=== PATIENT | female | born 1950 | race Caucasian/White ===

== ENCOUNTER → 2016-11-03 | Outpatient (CLI) | payer MEDICARE, BC ==
[2016-11-03 12:58] LABS: CHOLESTEROL 217.15 mg/dL (0-200); Direct HDL 51 mg/dL (>40); TRIGLYCERIDES 103 mg/dL (<150)
[2016-11-03 13:08] LABS: DIRECT LDL 129 mg/dL (<100)
== END ==
LOC: OD 11:26
PROVIDERS: ATTEND Internal Medicine
DX: E78.5 Hyperlipidemia, unspecified (principal)
CPT/HCPCS: 36415; 80061

== ENCOUNTER 2017-04-27 11:23 | Emergency (ER) | payer MEDICARE, BC ==
--- NOTE | 2017-04-27 11:54 | ER Document Report ---
ED Medical Screen (RME) - General Chief Complaint: Foreign Body Stated Complaint: FOREIGN BODY IN THROAT Time Seen by Provider: 04/27/17 11:44 Notes: 66-year-old female patient on Plavix reports eating fish Tuesday and feels like a bone got stuck in her right throat. The sensation continues now 2 days later. I have greeted and performed a rapid initial assessment of this patient. A comprehensive ED assessment and evaluation of the patient, analysis of test results and completion of the medical decision making process will be conducted by additional ED providers. TRAVEL OUTSIDE OF THE [place] IN LAST 30 DAYS: No - Related Data Allergies/Adverse Reactions: aspirin Allergy (Verified 02/02/16 16:53) diphenhydramine HCl [From Benadryl] Allergy (Verified 02/02/16 16:53) ibuprofen [From Motrin IB] Allergy (Verified 02/02/16 16:53) Home Medications: Current Home Medications Multivitamin/Iron/Folic Acid [Centrum Adults Tablet] 1 each PO DAILY 04/27/17 [ History] [place]-3 Fatty Acids/Fish Oil [Fish Oil 300 Mg Softgel] 1 each PO BID 04/27/17 [ History] Ranitidine HCl [Zantac 150 mg Tablet] 150 mg PO BID 04/27/17 [History] Past Medical History Renal/ Medical History: Denies: Hx Peritoneal Dialysis
--- NOTE | 2017-04-27 12:39 | RADIOLOGY REPORT (SQ) ---
EXAM DESCRIPTION: CT SOFT TISSUE NECK WITHOUT COMPLETED DATE/TIME: 04/27/2017 12:06 pm REASON FOR STUDY: ingested fishbone COMPARISON: None. TECHNIQUE: Noncontrast scanning from skull base through lung apices with review of bone, soft tissue and lung windows. Reconstructed coronal and sagittal MPR images reviewed. All images stored on PAC S. All CT scanners at this facility use dose modulation, iterative reconstruction, and/or weight based d osing when appropriate to reduce radiation dose to as low as reasonably achievable (ALARA). [facility]: Dose Right [facility]: CareDose [facility]: Dose Right [facility]: Teradose 4D [facility]: Smart [employer] RADIATION DOSE: Up-to-date CT equipment and radiation dose reduction techniques were employed. CTDIv ol: 14.3 mGy. DLP: 473 mGy-cm. mGy. LIMITATIONS: None. FINDINGS: The patient gives a history of swallowing a fish bone 2 days ago, with persistent pain in the right neck/laryngeal region. Non contrasted CT was performed to search for a small radiopaque fish bone. On axial images 50 throu gh 52, there is a faint radiodensity in the tongue base lymphoid tissue which could be a fish bone fr agment. Slightly more cephalad on axial images 41 through 43, two tiny less than 2 mm radiodensities are seen in the right pharyngeal tonsil, which could be calcifications in tonsillar crypts or tiny f silvia bone fragments. More coarse dense calcifications are seen over the left pharyngeal tonsil, of doubtful clinical signi ficance. This report was discussed with Dr. Ledezma in the emergency room. SKULL BASE: Intact. MAJOR SALIVARY GLANDS: No solid or cystic masses. No inflammatory changes. LYMPHADENOPATHY: No adenopathy. MUCOSAL MASSES OR ASYMMETRY: No mucosal masses or asymmetry. LARYNX/CORDS: No abnormal findings. LUNG APICES: Clear. BONES: Diffuse degenerative disc changes throughout the cervical spine with multilevel foraminal narr owing. THYROID: Normal size. No masses. PARANASAL SINUSES: Clear. OTHER: No other significant finding. IMPRESSION: There is a tiny radiodensity in the right tongue base lymphoid tissue which could repres ent a fish bone fragment. Smaller radiodensities in the right pharyngeal tonsil could either be calc ification in tonsillar crypts or tiny fish bone fragments. TECHNICAL DOCUMENTATION: JOB ID: [id number] Quality ID # [id number]: Final reports with documentation of one or more dose reduction techniques (e.g., Au tomated exposure control, adjustment of the mA and/or kV according to patient size, use of iterative reconstruction technique) 2010 [employer]- All Rights Reserved
[2017-04-27 12:41] VITALS: BP 146/62
--- NOTE | 2017-04-27 13:32 | ER Document Report ---
ED Foreign Body - General Chief Complaint: Foreign Body Stated Complaint: FOREIGN BODY IN THROAT Time Seen by Provider: 04/27/17 11:44 Mode of Arrival: Ambulatory Information source: Patient Notes: Patient is a 66-year-old female who presents to the ER today for possible fishbone stuck in her throat. Patient was eating fish on Tuesday and thinks that that is what happened. She states that she is tried eating bread and tried drinking plenty of fluids to try to get the bone to go down but it feels like it is stuck in the right side of her throat. She denies any trouble breathing, trouble swallowing. TRAVEL OUTSIDE OF THE [place] IN LAST 30 DAYS: No - Related Data Allergies/Adverse Reactions: aspirin Allergy (Verified 02/02/16 16:53) diphenhydramine HCl [From Benadryl] Allergy (Verified 02/02/16 16:53) ibuprofen [From Motrin IB] Allergy (Verified 02/02/16 16:53) Home Medications: Current Home Medications Multivitamin/Iron/Folic Acid [Centrum Adults Tablet] 1 each PO DAILY 04/27/17 [ History] [place]-3 Fatty Acids/Fish Oil [Fish Oil 300 Mg Softgel] 1 each PO BID 04/27/17 [ History] Ranitidine HCl [Zantac 150 mg Tablet] 150 mg PO BID 04/27/17 [History] Past Medical History - General Information source: Patient - Social History Smoking Status: Never Smoker Chew tobacco use (# tins/day): No Frequency of alcohol use: None Drug Abuse: None Family History: Reviewed & Not Pertinent Patient has suicidal ideation: No Patient has homicidal ideation: No - Past Medical History Cardiac Medical History: Reports: Hx Hypertension Renal/ Medical History: Denies: Hx Peritoneal Dialysis GI Medical History: Reports: Hx Ulcer Musculoskeltal Medical History: Reports Hx Arthritis Past Surgical History: Reports: Hx Cholecystectomy, Hx Hysterectomy - Immunizations Hx Pneumococcal Vaccination: 09/19/14 Review of Systems - Review of Systems Constitutional: No symptoms reported EENT: See HPI Cardiovascular: No symptoms reported Respiratory: No symptoms reported Gastrointestinal: No symptoms reported Genitourinary: No symptoms reported Female Genitourinary: No symptoms reported Musculoskeletal: No symptoms reported Skin: No symptoms reported Hematologic/Lymphatic: No symptoms reported Neurological/Psychological: No symptoms reported Physical Exam - Vital signs Vitals: Temp Pulse Resp BP Pulse Ox 97.9 F 65 16 146/62 H 98 04/27/17 11:27 04/27/17 11:27 04/27/17 11:27 04/27/17 11:27 04/27/17 11:27 - Notes Notes: PHYSICAL EXAMINATION: GENERAL: Well-appearing and in no acute distress. HEAD: Atraumatic, normocephalic. EYES: Pupils equal round and reactive to light, extraocular movements intact, sclera anicteric, conjunctiva are normal. ENT: ear canals without erythema or foreign body, TMs pearly bond with good bony landmarks, nares patent, oropharynx clear without exudates. Moist mucous membranes. Airway patent NECK: Normal range of motion, supple without lymphadenopathy LUNGS: CTAB and equal. No wheezes rales or rhonchi. HEART: Regular rate and rhythm without murmurs EXTREMITIES: Normal range of motion, no pitting edema. No cyanosis. NEUROLOGICAL: Cranial nerves grossly intact. Normal sensory/motor exams. PSYCH: Normal mood, normal affect. 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 I made the appointment myself. Patient is on her way there now. - Vital Signs Vital signs: Temp Pulse Resp BP Pulse Ox 97.9 F 65 16 146/62 H 98 04/27/17 11:27 04/27/17 11:27 04/27/17 11:27 04/27/17 11:27 04/27/17 11:27 Discharge - Discharge Clinical Impression: Foreign body in throat Qualifiers: Encounter type: initial encounter Qualified Code(s): T17.208A - Unspecified foreign body in pharynx causing other injury, initial encounter Condition: Stable Disposition: HOME, SELF-CARE Additional Instructions: GO STRAIGHT TO [facility], [address] [place] [address] THEY HAVE AN APPT FOR YOU AT 2PM. Referrals: JUAN LUIS CHENG MD [Primary Care Provider] - Follow up as needed
== END 2017-04-27 13:45 | disposition home or self-care (01) ==
LOC: ER 11:23
DX: T17.208A Unspecified foreign body in pharynx causing other injury, initial encounter (principal); X58.XXXA Exposure to other specified factors, initial encounter; I10 Essential (primary) hypertension; Z88.6 Allergy status to analgesic agent; Z88.8 Allergy status to other drugs, medicaments and biological substances
CPT/HCPCS: 70490; 99283

== ENCOUNTER → 2017-05-06 | Outpatient (CLI) | payer MEDICARE, BC ==
--- NOTE | 2017-05-06 18:28 | RADIOLOGY REPORT (SQ) ---
EXAM DESCRIPTION: BARIUM SWALLOW PHARYNX ONLY COMPLETED DATE/TIME: 05/06/2017 9:30 am REASON FOR STUDY: GERD (K21.9) R13.10 DYSPHAGIA, UNSPECIFIED K21.9 GASTRO-ESOPHAGEAL REFLUX DISEAS E WITHOUT ESOPHAGITIS COMPARISON: CT soft tissue neck without contrast 04/27/2017 TECHNIQUE: Under fluoroscopic guidance, patient ingested effervescent granules followed by thick and thin barium. Fluoroscopic spot images and routine radiographic images acquired and stored on PACS. 12 MM BARIUM TABLET GIVEN: Yes No significant delay in passage. LIMITATIONS: None. FLUOROSCOPY TIME: FLUORO TIME: 1.4 minutes 11 series of digital images saved to PACS. FINDINGS: NEUROMUSCULAR COORDINATION OF SWALLOW: Normal. No aspiration. ESOPHAGEAL MOTILITY: Tertiary contractions of the esophagus are present. ESOPHAGEAL MUCOSA: Normal mucosa without masses or ulceration. GASTRO-ESOPHAGEAL JUNCTION: Small hiatal hernia. Unprovoked gastroesophageal reflux to the cervical esophagus. NON-GI TRACT STRUCTURES: Diffuse degenerative changes cervical spine OTHER: No other significant finding. IMPRESSION: Small hiatal hernia with gastroesophageal reflux to the cervical esophagus COMMENT: Quality ID 145: Final reports for procedures using fluoroscopy that document radiation exp osure indices, or exposure time and number of fluorographic images (if radiation exposure indices are not available) TECHNICAL DOCUMENTATION: JOB ID: [id number] [employer]- All Rights Reserved
== END ==
LOC: RAD 08:50
PROVIDERS: ATTEND Otolaryngology
DX: K21.9 Gastro-esophageal reflux disease without esophagitis (principal); K44.9 Diaphragmatic hernia without obstruction or gangrene
CPT/HCPCS: 74210

== ENCOUNTER 2017-09-08 15:20 | Inpatient (IN) | payer MEDICARE, BC ==
--- NOTE | 2017-09-08 16:04 | RADIOLOGY REPORT (SQ) ---
EXAM DESCRIPTION: HIP LEFT AP/LATERAL COMPLETED DATE/TIME: 09/08/2017 3:56 pm REASON FOR STUDY: l hip rotation COMPARISON: None. NUMBER OF VIEWS: Two views. TECHNIQUE: AP pelvis and additional frog-leg view of the left hip. LIMITATIONS: None. FINDINGS: MINERALIZATION: Normal. LEFT HIP: There is a comminuted low intertrochanteric/sub intertrochanteric fracture of the hip with varus angulation. RIGHT HIP: No fracture or dislocation. No worrisome bone lesions. PUBIS AND ISCHIUM: No fracture. PELVIS: No fracture. SACRUM: No fracture or dislocation. No worrisome bone lesions. LOWER LUMBAR SPINE: No fracture or dislocation. No worrisome bone lesions. No significant disc disea se. SOFT TISSUES: No findings. OTHER: No other significant finding. IMPRESSION: Left hip fracture. TECHNICAL DOCUMENTATION: JOB ID: [id number] [employer]- All Rights Reserved
--- NOTE | 2017-09-08 16:05 | RADIOLOGY REPORT (SQ) ---
EXAM DESCRIPTION: CHEST SINGLE VIEW COMPLETED DATE/TIME: 09/08/2017 3:56 pm REASON FOR STUDY: PRE OP COMPARISON: 02/02/2016 EXAM PARAMETERS: NUMBER OF VIEWS: One view. TECHNIQUE: Single frontal radiographic view of the chest acquired. RADIATION DOSE: NA LIMITATIONS: None. FINDINGS: LUNGS AND PLEURA: No opacities, masses or pneumothorax. No pleural effusion. MEDIASTINUM AND HILAR STRUCTURES: No masses. Contour normal. HEART AND VASCULAR STRUCTURES: Heart normal in size. Normal vasculature. BONES: No acute findings. HARDWARE: None in the chest. OTHER: No other significant finding. IMPRESSION: NO ACUTE RADIOGRAPHIC FINDING IN THE CHEST. TECHNICAL DOCUMENTATION: JOB ID: [id number] [employer]- All Rights Reserved
[2017-09-08] MEDS ORDERED: HYDROMORPHONE HCL INJ/PF 2 MG/ML AMPULE IV PRN ×3 (16:43→23:37)
[2017-09-08] MEDS ORDERED: ONDANSETRON HCL INJ/PF 4 MG/2 ML SDV IV PRN ×2 (16:44→19:30)
[2017-09-08 17:06] LABS: HEMATOCRIT 38.9 % (36.0-47.0); HEMOGLOBIN 13.1 g/dL (12.0-15.5); MEAN CORPUSCULAR HEMOGLOBIN 29.8 pg (27.0-33.4); MEAN CORPUSCULAR HGB CONC 33.7 g/dL (32.0-36.0); MEAN CORPUSCULAR VOLUME 89 fl (80-97); PLATELET COUNT 273 10^3/uL (150-450); RED BLOOD COUNT 4.39 10^6/uL (3.72-5.28); RED CELL DISTRIBUTION WIDTH 13.1 % (11.5-14.0); WHITE BLOOD COUNT 19.8 10^3/uL (4.0-10.5)
[2017-09-08 17:22] LABS: INTERNATIONAL RATION (INR) 0.97; PROTHROMBIN TIME 13.6 SEC (11.4-15.4)
[2017-09-08 17:23] LABS: ALANINE AMINOTRANSFERASE 25 U/L (9-52); ALBUMIN 4.2 g/dL (3.5-5.0); ALKALINE PHOSPHATASE 132 U/L (38-126); ANION GAP 10 (5-19); ASPARTATE AMINO TRANSFERASE 28 U/L (14-36); BILIRUBIN,DIRECT 0.3 mg/dL (0.0-0.4); BILIRUBIN,TOTAL 0.6 mg/dL (0.2-1.3); BLOOD UREA NITROGEN 22 mg/dL (7-20); CALCIUM 9.9 mg/dL (8.4-10.2); CARBON DIOXIDE 28 mmol/L (22-30); CHLORIDE 104 mmol/L (98-107); GLUCOSE 201 mg/dL (75-110); PARTIAL THROMBOPLASTIN TIME 27.1 SEC (23.5-35.8); POTASSIUM 4.7 mmol/L (3.6-5.0); SODIUM 141.5 mmol/L (137-145)
[2017-09-08 17:44] LABS: ABSOLUTE LYMPHOCYTES# (MANUAL) 0.6 10^3/uL (0.5-4.7); ABSOLUTE MONOCYTES # (MANUAL) 0.4 10^3/uL (0.1-1.4); ABSOLUTE NEUTROPHILS# (MANUAL) 18.8 10^3/uL (1.7-8.2); BAND NEUTROPHILS % (MANUAL) 4 % (3-5); BASOPHILS % (MANUAL) 0 % (0-2); EOSINOPHILS % (MANUAL) 0 % (0-6); LYMPHOCYTES % (MANUAL) 3 % (13-45); MONOCYTES % (MANUAL) 2 % (3-13); SEGMENTED NEUTROPHILS % (MAN) 91 % (42-78); TOTAL CELLS COUNTED 100
[2017-09-08 17:47] LABS: PLATELET COMMENT ADEQUATE; RBC MORPHOLOGY COMMENT NORMO-CYTIC/CHROMIC
--- NOTE | 2017-09-08 17:53 | ER Document Report ---
ED General - General Chief Complaint: Fall Injury Stated Complaint: FALL/HIP PAIN Time Seen by Provider: 09/08/17 15:33 TRAVEL OUTSIDE OF THE [place] IN LAST 30 DAYS: No - HPI Patient complains to provider of: Left hip pain Notes: There is on a stepladder home proximally for second step when she fell off landing on left side injuring her left hip. Patient denies loss consciousness denies any other injuries. Patient states has a history of diabetes hypertension. PCP is Blaine Cervantes MD. Patient is in obvious pain with obvious hip deformity upon my evaluation. - Related Data Allergies/Adverse Reactions: aspirin Allergy (Verified 02/02/16 16:53) diphenhydramine HCl [From Benadryl] Allergy (Verified 02/02/16 16:53) ibuprofen [From Motrin IB] Allergy (Verified 02/02/16 16:53) Past Medical History - Social History Smoking Status: Never Smoker Frequency of alcohol use: None Drug Abuse: None Family History: Reviewed & Not Pertinent Patient has suicidal ideation: No Patient has homicidal ideation: No - Past Medical History Cardiac Medical History: Reports: Hx Hypertension Renal/ Medical History: Denies: Hx Peritoneal Dialysis GI Medical History: Reports: Hx Ulcer Musculoskeltal Medical History: Reports Hx Arthritis Past Surgical History: Reports: Hx Cholecystectomy, Hx Hysterectomy - Immunizations Hx Pneumococcal Vaccination: 09/19/14 Review of Systems - Review of Systems Constitutional: No symptoms reported EENT: No symptoms reported Cardiovascular: No symptoms reported Respiratory: No symptoms reported Gastrointestinal: No symptoms reported Genitourinary: No symptoms reported Female Genitourinary: No symptoms reported Musculoskeletal: Other - Hip pain Skin: No symptoms reported Hematologic/Lymphatic: No symptoms reported Neurological/Psychological: No symptoms reported -: Yes All other systems reviewed and negative Physical Exam - Vital signs Vitals: Resp Pulse Ox 18 97 09/08/17 16:02 09/08/17 16:02 Interpretation: Normal - General General appearance: Appears well, Alert - HEENT Head: Normocephalic, Atraumatic Eyes: Normal Pupils: PERRL - Respiratory Respiratory status: No respiratory distress Chest status: Nontender Breath sounds: Normal Chest palpation: Normal - Cardiovascular Rhythm: Regular Heart sounds: Normal auscultation Murmur: No - Abdominal Inspection: Normal Distension: No distension Bowel sounds: Normal Tenderness: Nontender Organomegaly: No organomegaly - Back Back: Normal, Nontender - Extremities General upper extremity: Normal inspection, Nontender, Normal color, Normal ROM , Normal temperature General lower extremity: Other - Obvious deformity and shortening of the left hip.No signs of open fracturePulses intact distalNo other signs of injury right side unaffected. - Neurological Neuro grossly intact: Yes Cognition: Normal Orientation: AAOx4 Jie Coma Scale Eye Opening: Spontaneous Jie Coma Scale Verbal: Oriented [place] Coma Scale Motor: Obeys Commands [place] Coma Scale Total: 15 Speech: Normal Motor strength normal: LUE, RUE, LLE, RLE Sensory: Normal - Psychological Associated symptoms: Normal affect, Normal mood - Skin Skin Temperature: Warm Skin Moisture: Dry Skin Color: Normal Course - Re-evaluation Re-evalutation: 09/08/17 18:24 No other signs of any other injuries discuss with orthopedic Dr. Saavedra agrees with medical admission to the medical issues.Patient n.p.o. after midnight.Discussed with Blaine Cervantes MD and recall Blaine Cervantes MD after laboratory results. Leukocytosis without any signs of other infection more likely leukocytosis due to trauma. Patient will be admitted to the medical floor. - Vital Signs Vital signs: Temp Pulse Resp BP Pulse Ox 25 H 160/66 H 98 09/08/17 17:02 09/08/17 17:02 09/08/17 17:02 - Laboratory Result Diagrams: 09/08/17 16:45 09/08/17 16:45 Laboratory results interpreted by me: 09/08/17 09/08/17 16:45 16:45 WBC 19.8 H Seg Neuts % (Manual) 91 H Lymphocytes % (Manual) 3 L Monocytes % (Manual) 2 L Abs Neuts (Manual) 18.8 H BUN 22 H Glucose 201 H Alkaline Phosphatase 132 H Discharge - Discharge Clinical Impression: Fracture of left hip Qualifiers: Encounter type: sequela Fracture type: closed Qualified Code(s): S72.002S - Fracture of unspecified part of neck of left femur, sequela Diabetes mellitus, type 2 Qualifiers: Diabetes mellitus complication status: without complication Hypertensive disorder Qualifiers: Hypertension type: essential hypertension Qualified Code(s): I10 - Essential ( primary) hypertension Condition: Good Disposition: ADMITTED INPATIENT Admitting Provider: Helen Unit Admitted: Medical Floor
--- NOTE | 2017-09-08 17:59 | EKG REPORT ---
SEVERITY:- NORMAL ECG - SINUS RHYTHM : Confirmed by: Villa Yu MD 08-Sep-2017 17:58:29
[2017-09-08] MEDS ORDERED: NORMAL SALINE 1000 ML 1,000 ML IV ONE (18:13)
[2017-09-08] MEDS ORDERED: FENTANYL CITRATE INJ/PF 100 MCG/2 ML AMPUL IV ONE (18:16)
[2017-09-08 18:36] LABS: APPEARANCE,URINE SLIGHTLY-CLOUDY; BILIRUBIN,URINE NEGATIVE (NEGATIVE); COLOR,URINE YELLOW; GLUCOSE, URINE NEGATIVE (NEGATIVE); KETONES,URINE 80 mg/dL (NEGATIVE); LEUKOCYTE ESTERASE,URINE NEGATIVE (NEGATIVE); NITRITE,URINE NEGATIVE (NEGATIVE); PROTEIN,URINE NEGATIVE (NEGATIVE); URINE SPECIFIC GRAVITY 1.021; UROBILINOGEN,URINE NEGATIVE mg/dL (<2.0)
[2017-09-08] MEDS ORDERED: ONDANSETRON 4 MG TAB.RAPDIS PO PRN (18:37)
[2017-09-08] MEDS ORDERED: NORMAL SALINE 1000 ML 1,000 ML IV PRN (18:37)
[2017-09-08] MEDS ORDERED: DEXTROSE 50%-WATER 25 GM/50 ML DISP.SYRIN IV PRN ×2 (18:46)
[2017-09-08] MEDS ORDERED: INSULIN LISPRO 100 UNIT/ML 3 ML VIAL SUBCUT PRN (18:46)
[2017-09-08] MEDS ORDERED: GLUCAGON,HUMAN RECOMB 1 MG INJ IM PRN (18:46)
[2017-09-08] MEDS ORDERED: DEXTROSE 40% GEL 15 GM TUBE PO PRN ×2 (18:46)
--- NOTE | 2017-09-08 18:55 | PDOC H&P ---
History of Present Illness Admission Date/PCP: 09/08/17 18:18 JUAN LUIS CHENG, Patient complains of: fall with left hip pain History of Present Illness: SARAH MURILLO is a 66 year old female Past Medical History Cardiac Medical History: Reports: Hypertension Endocrine Medical History: Reports: Diabetes Mellitus Type 2 GI Medical History: Reports: Gastroesophageal Reflux Disease Musculoskeltal Medical History: Reports: Arthritis Past Surgical History Past Surgical History: Reports: Cholecystectomy, Hysterectomy Social History Smoking Status: Never Smoker Frequency of Alcohol Use: None Hx Recreational Drug Use: No Drugs: None Hx Prescription Drug Abuse: No Family History Family History: CAD, DM Parental Family History Reviewed: Yes Children Family History Reviewed: Yes Sibling(s) Family History Reviewed.: Yes Medication/Allergy Allergies/Adverse Reactions: aspirin Allergy (Verified 02/02/16 16:53) diphenhydramine HCl [From Benadryl] Allergy (Verified 02/02/16 16:53) ibuprofen [From Motrin IB] Allergy (Verified 02/02/16 16:53) Review of Systems All systems: as per H Physical Exam Vital Signs: Temp Pulse Resp BP Pulse Ox 25 H 160/66 H 98 09/08/17 17:02 09/08/17 17:02 09/08/17 17:02 General appearance: PRESENT: mild distress Head exam: PRESENT: atraumatic Eye exam: PRESENT: conjunctiva pink Neck exam: ABSENT: carotid bruit, JVD Respiratory exam: PRESENT: clear to auscultation shawn Cardiovascular exam: PRESENT: RRR, +S1, +S2 Pulses: PRESENT: +1 pedal pulses bilateral GI/Abdominal exam: PRESENT: normal bowel sounds, soft Extremities exam: PRESENT: tenderness Additional comments: left hip Musculoskeletal exam: ABSENT: ambulatory Neurological exam: PRESENT: awake Results Impressions: Chest X-Ray 09/08/17 00:00 IMPRESSION: NO ACUTE RADIOGRAPHIC FINDING IN THE CHEST. Hip X-Ray 09/08/17 00:00 IMPRESSION: Left hip fracture. Assessment & Plan - Diagnosis (1) Diabetes mellitus, type 2 Qualifiers: Diabetes mellitus complication status: without complication Is this a current diagnosis for this admission?: Yes Plan: insulin protocol (2) Fracture of left hip Qualifiers: Encounter type: sequela Fracture type: closed Qualified Code(s): S72.002S - Fracture of unspecified part of neck of left femur, sequela Is this a current diagnosis for this admission?: Yes Plan: ortho consult (3) Hypertensive disorder Qualifiers: Hypertension type: essential hypertension Qualified Code(s): I10 - Essential (primary) hypertension Is this a current diagnosis for this admission?: Yes Plan: continue current meds
[2017-09-08] MEDS ORDERED: ENOXAPARIN SODIUM INJ 40 MG/0.4 ML DISP.SYRIN SUBCUT ONE (20:30)
[2017-09-08] MEDS ORDERED: INFLUENZA ADLT QUAD (36MOS+) 2017-18 VAC 0.5 ML SYR IM PRN (22:56)
[2017-09-08] MEDS ORDERED: ACETAMINOPHEN 325 MG TABLET PO PRN (23:09)
[2017-09-08] MEDS ORDERED: KETOROLAC TROMETHAMINE INJ/PF 30 MG/1 ML SDV IV PRN (23:09)
[2017-09-08] MEDS ORDERED: HYDRALAZINE HCL INJ/PF 20 MG/1 ML SDV IV PRN (23:09)
[2017-09-08] MEDS ORDERED: AMLODIPINE BESYLATE 2.5 MG TABLET PO ONE (23:59)
[2017-09-08] MEDS ORDERED: METOPROLOL SUCCINATE 25 MG TAB.SR.24H PO ONE (23:59)
[2017-09-09] MEDS ORDERED: FENTANYL CITRATE INJ/PF 100 MCG/2 ML AMPUL IV ONE (02:45)
[2017-09-09] MEDS ORDERED: HYDROMORPHONE HCL INJ/PF 2 MG/ML AMPULE IV PRN (03:30)
[2017-09-09 05:07] LABS: ABSOLUTE LYMPHOCYTES (AUTO) 0.9 10^3/uL (0.5-4.7); ABSOLUTE MONOCYTES (AUTO) 0.5 10^3/uL (0.1-1.4); ABSOLUTE NEUT (AUTO) 8.3 10^3/uL (1.7-8.2); BASOPHILS % (AUTO) 0.1 % (0-2); HEMATOCRIT 34.1 % (36.0-47.0); HEMOGLOBIN 11.5 g/dL (12.0-15.5); MEAN CORPUSCULAR HEMOGLOBIN 29.8 pg (27.0-33.4); MEAN CORPUSCULAR HGB CONC 33.7 g/dL (32.0-36.0); MEAN CORPUSCULAR VOLUME 89 fl (80-97); MONOCYTES % (AUTO) 5.1 % (3-13); PLATELET COUNT 254 10^3/uL (150-450); RED BLOOD COUNT 3.85 10^6/uL (3.72-5.28); RED CELL DISTRIBUTION WIDTH 13.1 % (11.5-14.0); SEGMENTED NEUTROPHILS % (AUTO) 85.8 % (42-78); TOTAL CELLS COUNTED % (AUTO) 100 %; WHITE BLOOD COUNT 9.7 10^3/uL (4.0-10.5)
[2017-09-09 05:26] LABS: ANION GAP 10 (5-19); BLOOD UREA NITROGEN 20 mg/dL (7-20); CALCIUM 9.3 mg/dL (8.4-10.2); CARBON DIOXIDE 26 mmol/L (22-30); CHLORIDE 104 mmol/L (98-107); GLUCOSE 179 mg/dL (75-110); SODIUM 139.8 mmol/L (137-145)
[2017-09-09] MEDS ORDERED: LANSOPRAZOLE 30 MG TAB.RAP.DR PO SCH (06:00)
[2017-09-09] MEDS ORDERED: DEXTROSE 50%-WATER 25 GM/50 ML DISP.SYRIN IV PRN ×2 (07:39)
[2017-09-09] MEDS ORDERED: GLUCAGON,HUMAN RECOMB 1 MG INJ SUBCUT PRN (07:39)
[2017-09-09] MEDS ORDERED: DEXTROSE 40% GEL 15 GM TUBE PO PRN ×2 (07:39)
--- NOTE | 2017-09-09 07:48 | PDOC CONSULTATION ---
History of Present Illness Admission Date/PCP: 09/08/17 18:18 JUAN LUIS CHENG, Patient complains of: Left hip pain History of Present Illness: SARAH MURILLO is a 66 year old female who sustained a fall when he tripped over her ladder onto her left side. Patient had notable deformity and pain with motion. She was unable to ambulate was brought by EMS to the emergency room where x-rays demonstrated a fracture. She has been having severe pain worse with motion. Denies numbness or tingling. Has been taking Dilaudid and fentanyl with relief. Pain 10/10 at times. Denies headache, dizziness or loss of consciousness. Past Medical History Cardiac Medical History: Reports: Hypertension Endocrine Medical History: Reports: Diabetes Mellitus Type 2 GI Medical History: Reports: Gastroesophageal Reflux Disease Musculoskeltal Medical History: Reports: Arthritis Past Surgical History Past Surgical History: Reports: Cholecystectomy, Hysterectomy Social History Smoking Status: Never Smoker Frequency of Alcohol Use: None Hx Recreational Drug Use: No Drugs: None Hx Prescription Drug Abuse: No Family History Family History: CAD, DM Parental Family History Reviewed: No Children Family History Reviewed: No Sibling(s) Family History Reviewed.: No Medication/Allergy Home Medications: Amlodipine Besylate [Norvasc 2.5 mg Tablet] 2.5 mg PO Q12 09/08/17 Cholecalciferol (Vitamin D3) [Vitamin D3] 1 cap PO [id number] 09/08/17 Clopidogrel Bisulfate [Plavix 75 mg Tablet] 75 mg PO DAILY 09/08/17 Dicyclomine HCl [Bentyl 10 mg Capsule] 10 mg PO Q6 09/08/17 Docusate Sodium [Colace] 100 mg PO DAILY 09/08/17 Fexofenadine HCl 180 mg PO DAILY 09/08/17 Losartan Potassium [Cozaar 50 mg Tablet] 50 mg PO Q12 09/08/17 Metoprolol Succinate [Toprol Xl] 12.5 mg PO Q12 09/08/17 Montelukast Sodium [Singulair 10 mg Tablet] 10 mg PO QHS 09/08/17 Multivitamin/Iron/Folic Acid [Centrum Adults Tablet] 1 tab PO DAILY 09/08/17 Herscher-3 Fatty Acids/Fish Oil [Fish Oil 1,000 mg Capsule] 1 cap PO DAILY Omeprazole 20 mg PO Q12 12/21/17 Ranitidine HCl [Zantac 150 mg Tablet] 150 mg PO Q12 09/08/17 Zolpidem Tartrate [Ambien 5 mg Tablet] 5 mg PO HSP PRN 09/08/17 Allergies/Adverse Reactions: aspirin Allergy (Verified 02/02/16 16:53) diphenhydramine HCl [From Benadryl] Allergy (Verified 02/02/16 16:53) ibuprofen [From Motrin IB] Allergy (Verified 02/02/16 16:53) Review of Systems Constitutional: ABSENT: chills, fever(s), headache(s), weight gain, weight loss Eyes: ABSENT: visual disturbances Ears: ABSENT: hearing changes Cardiovascular: ABSENT: chest pain, dyspnea on exertion, edema, orthropnea, palpitations Respiratory: ABSENT: cough, hemoptysis Gastrointestinal: PRESENT: heartburn. ABSENT: abdominal pain, constipation, diarrhea, hematemesis, hematochezia, nausea, vomiting Genitourinary: ABSENT: dysuria, hematuria Musculoskeletal: PRESENT: as per HPI Integumentary: ABSENT: rash, wounds Neurological: ABSENT: abnormal gait, abnormal speech, confusion, dizziness, focal weakness, syncope Psychiatric: ABSENT: anxiety, depression, homidical ideation, suicidal ideation Endocrine: ABSENT: cold intolerance, heat intolerance, menstrual abnormalities, polydipsia, polyuria Hematologic/Lymphatic: ABSENT: easy bleeding, easy bruising, lymphadenopathy Physical Exam Vital Signs: Temp Pulse Resp BP Pulse Ox 97.8 F 84 18 132/53 H 93 09/09/17 00:23 09/09/17 00:23 09/09/17 00:23 09/09/17 00:23 09/09/17 00:23 Intake & Output 09/08/17 09/09/17 09/10/17 06:59 06:59 06:59 Intake Total 460 Balance 460 Weight 77.11 kg General appearance: PRESENT: no acute distress, well-developed, well-nourished Head exam: PRESENT: atraumatic, normocephalic Eye exam: PRESENT: conjunctiva pink, EOMI, PERRLA. ABSENT: scleral icterus Ear exam: PRESENT: normal external ear exam Mouth exam: PRESENT: moist, tongue midline Neck exam: PRESENT: full ROM. ABSENT: carotid bruit, JVD, lymphadenopathy, thyromegaly Respiratory exam: PRESENT: unlabored Cardiovascular exam: PRESENT: RRR. ABSENT: diastolic murmur, rubs, systolic murmur Pulses: PRESENT: normal dorsalis pedis pul, +2 pedal pulses bilateral Vascular exam: PRESENT: normal capillary refill GI/Abdominal exam: PRESENT: normal bowel sounds, soft. ABSENT: distended, guarding, mass, organolmegaly, rebound, tenderness Rectal exam: PRESENT: deferred Musculoskeletal exam: PRESENT: other - Left hip: Short, externally rotated. Positive logroll. Tenderness along the trochanteric region. Intact plantar flexion/dorsiflexion. No sensory deficits. No calf tenderness. Neurological exam: PRESENT: alert, awake, oriented to person, oriented to place , oriented to time, oriented to situation, CN II-XII grossly intact. ABSENT: motor sensory deficit Psychiatric exam: PRESENT: appropriate affect, normal mood. ABSENT: homicidal ideation, suicidal ideation Skin exam: PRESENT: dry, intact, warm. ABSENT: cyanosis, rash Results Laboratory Results: 09/09/17 04:28 09/09/17 04:28 09/09/17 09/09/17 04:28 04:28 WBC 9.7 RBC 3.85 Hgb 11.5 L Hct 34.1 L MCV 89 MCH 29.8 MCHC 33.7 RDW 13.1 Plt Count 254 Seg Neutrophils % 85.8 H Lymphocytes % 9.0 L Monocytes % 5.1 Eosinophils % 0.0 Basophils % 0.1 Absolute Neutrophils 8.3 H Absolute Lymphocytes 0.9 Absolute Monocytes 0.5 Absolute Eosinophils 0.0 Absolute Basophils 0.0 Sodium 139.8 Potassium 4.0 Chloride 104 Carbon Dioxide 26 Anion Gap 10 BUN 20 Creatinine 0.59 Est GFR ( Amer) > 60 Est GFR (Non-Af Amer) > 60 Glucose 179 H Calcium 9.3 Impressions: Chest X-Ray 09/08/17 00:00 IMPRESSION: NO ACUTE RADIOGRAPHIC FINDING IN THE CHEST. Hip X-Ray 09/08/17 00:00 IMPRESSION: Left hip fracture. Status: Image reviewed by me - I have reviewed patient's radiographs which demonstrate left reverse oblique fracture of the proximal femur there is no evidence of underlying osseous lesion or abnormality. Assessment & Plan - Diagnosis (1) Fracture, intertrochanteric, left femur Qualifiers: Encounter type: initial encounter Fracture type: closed Fracture alignment: displaced Qualified Code(s): S72.142A - Displaced intertrochanteric fracture of left femur, initial encounter for closed fracture Is this a current diagnosis for this admission?: Yes Plan: Today we discussed treatment options given patient is a community ambulator and fairly healthy given her age I have recommended operative intervention. Risks and benefits of the operative procedure have been explained to the patient, risks including anesthetic complications, excessive bleeding, infection, injury to surrounding nerves, vessels and tendons, hardware failure, bruising, healing difficulties, scar formation, posttraumatic arthritis and any unforseen complication. Patient has verbalized understanding and consented for the procedure. We will proceed with operative intervention likely today if medically optimized.
[2017-09-09] MEDS ORDERED: FAMOTIDINE INJ/PF 20 MG/2 ML SDV IV ONE (08:30)
--- NOTE | 2017-09-09 08:52 | PDOC PROGRESS REPORT ---
Subjective Progress Note for:: 09/09/17 Reason For Visit: HIP FRACTURE Physical Exam Vital Signs: Temp Pulse Resp BP Pulse Ox 97.8 F 84 18 132/53 H 93 09/09/17 00:23 09/09/17 00:23 09/09/17 00:23 09/09/17 00:23 09/09/17 00:23 Intake & Output 09/08/17 09/09/17 09/10/17 06:59 06:59 06:59 Intake Total 460 Balance 460 Weight 77.11 kg General appearance: PRESENT: severe distress Head exam: PRESENT: atraumatic Eye exam: PRESENT: conjunctiva pink Neck exam: ABSENT: carotid bruit, JVD Respiratory exam: PRESENT: clear to auscultation shawn Cardiovascular exam: PRESENT: RRR, +S1, +S2 Pulses: PRESENT: +1 pedal pulses bilateral GI/Abdominal exam: PRESENT: normal bowel sounds, soft Extremities exam: PRESENT: tenderness Musculoskeletal exam: ABSENT: ambulatory Neurological exam: PRESENT: alert, awake Results Laboratory Results: 09/09/17 04:28 09/09/17 04:28 09/09/17 09/09/17 04:28 04:28 WBC 9.7 RBC 3.85 Hgb 11.5 L Hct 34.1 L MCV 89 MCH 29.8 MCHC 33.7 RDW 13.1 Plt Count 254 Seg Neutrophils % 85.8 H Lymphocytes % 9.0 L Monocytes % 5.1 Eosinophils % 0.0 Basophils % 0.1 Absolute Neutrophils 8.3 H Absolute Lymphocytes 0.9 Absolute Monocytes 0.5 Absolute Eosinophils 0.0 Absolute Basophils 0.0 Sodium 139.8 Potassium 4.0 Chloride 104 Carbon Dioxide 26 Anion Gap 10 BUN 20 Creatinine 0.59 Est GFR ( Amer) > 60 Est GFR (Non-Af Amer) > 60 Glucose 179 H Calcium 9.3 Impressions: Chest X-Ray 09/08/17 00:00 IMPRESSION: NO ACUTE RADIOGRAPHIC FINDING IN THE CHEST. Hip X-Ray 09/08/17 00:00 IMPRESSION: Left hip fracture. Assessment & Plan - Diagnosis (1) Diabetes mellitus, type 2 Qualifiers: Diabetes mellitus complication status: without complication Is this a current diagnosis for this admission?: Yes Plan: Well controlled with sliding scale insulin coverage most probably related to the stress induced by pain (2) Fracture of left hip Qualifiers: Encounter type: sequela Fracture type: closed Qualified Code(s): S72.002S - Fracture of unspecified part of neck of left femur, sequela Is this a current diagnosis for this admission?: Yes Plan: The pain is being controlled with medication. I see no contraindication for patient to proceed with surgery. (3) Hypertensive disorder Qualifiers: Hypertension type: essential hypertension Qualified Code(s): I10 - Essential (primary) hypertension Is this a current diagnosis for this admission?: Yes Plan: Stable continue current treatment - Plan Summary Plan Summary: We will discuss with orthopedics. The patient is clear for surgery. Would recommend proceeding with surgery and rehab after the surgery
[2017-09-09] MEDS: HYDROMORPHONE HCL INJ/PF 2 MG/ML AMPULE IV PRN ×3 (08:55→23:29)
[2017-09-09] MEDS: LANSOPRAZOLE 30 MG TAB.RAP.DR PO SCH ×2 (08:56→17:17)
[2017-09-09] MEDS ORDERED: DOCUSATE SODIUM 100 MG/10 ML UDC PO SCH (10:00)
[2017-09-09] MEDS ORDERED: (PENDING PHARMACY ID) (Fexofenadine Hcl [Fexofenadine Hcl] 180 MG) PO SCH (10:00)
[2017-09-09] MEDS ORDERED: ENOXAPARIN SODIUM INJ 40 MG/0.4 ML DISP.SYRIN SUBCUT SCH (10:00)
[2017-09-09] MEDS ORDERED: DOCUSATE SODIUM 100 MG CAPSULE PO SCH (10:00)
[2017-09-09] MEDS: METOPROLOL SUCCINATE 25 MG TAB.SR.24H PO SCH ×2 (11:42→21:31)
[2017-09-09] MEDS: DOCUSATE SODIUM 100 MG CAPSULE PO SCH ×2 (12:00→17:18)
[2017-09-09] MEDS: AMLODIPINE BESYLATE 2.5 MG TABLET PO SCH ×2 (12:00→21:31)
[2017-09-09] MEDS: LOSARTAN POTASSIUM 50 MG TABLET PO SCH ×2 (12:00→21:39)
[2017-09-09] MEDS ORDERED: FENTANYL CITRATE INJ/PF 100 MCG/2 ML AMPUL ONE (12:27)
[2017-09-09] MEDS ORDERED: ACETAMINOPHEN 100 ML IV ONE (12:27)
[2017-09-09] MEDS ORDERED: MIDAZOLAM 2 MG/2 ML INJ ONE (12:27)
[2017-09-09] MEDS ORDERED: PROPOFOL INJ 200 MG/20 ML VIAL IV ONE (12:27)
[2017-09-09] MEDS ORDERED: CEFAZOLIN INJ 1 GM VIAL ONE (12:29)
[2017-09-09] MEDS ORDERED: EPHEDRINE SULFATE INJ 50 MG/1 ML AMPULE ONE (13:25)
[2017-09-09] MEDS ORDERED: FENTANYL CITRATE INJ/PF 100 MCG/2 ML AMPUL IV PRN ×3 (13:31)
[2017-09-09] MEDS ORDERED: PROMETHAZINE HCL INJ 25 MG/1 ML VIAL IV PRN ×2 (13:31)
[2017-09-09] MEDS ORDERED: MEPERIDINE HCL/PF INJ 25 MG/1 ML DISP.SYRIN IV PRN (13:31)
[2017-09-09] MEDS ORDERED: PHENYLEPHRINE HCL INJ/PF 10 MG/1 ML SDV ONE (14:00)
[2017-09-09] MEDS ORDERED: DEXAMETHASONE SOD PHOSPHATE INJ 4 MG/1 ML VIAL ONE (14:00)
[2017-09-09] MEDS ORDERED: ROCURONIUM BROMIDE INJ 50 MG/5 ML VIAL IV ONE (14:00)
[2017-09-09] MEDS ORDERED: ONDANSETRON HCL INJ/PF 4 MG/2 ML SDV ONE (14:00)
[2017-09-09] MEDS ORDERED: GLYCOPYRROLATE INJ 0.4 MG/2 ML VIAL ONE (14:00)
[2017-09-09] MEDS ORDERED: SUCCINYLCHOLINE CHLORIDE INJ 200 MG/10 ML VIAL ONE (14:00)
[2017-09-09] MEDS ORDERED: RINGERS SOLUTION,LACTATED 1,000 ML IV PRN (14:27)
--- NOTE | 2017-09-09 14:27 | Operative Report ---
Operative Report DATE OF SURGERY: 09/09/17 PREOPERATIVE DIAGNOSIS: Left reverse obliquity intertrochanteric fracture POSTOPERATIVE DIAGNOSIS: Same OPERATION: Cephalo-medullary nail left intertrochanteric fracture SURGEON: KOLE HILLIARD ANESTHESIA: Spinal COMPLICATIONS: None ESTIMATED BLOOD LOSS: 150cc PROCEDURE: Indication for above procedure: 66-year-old female who sustained a fall onto her left hip. Patient was brought to the emergency room where x-rays demonstrated intertrochanteric fracture. On consultation we discussed treatment options including operative versus nonoperative intervention. After discussing risks and benefits the joint decision was made to proceed with operative treatment once patient medically optimized for operative intervention. Procedure in detail: Patient was seen and evaluated in the preoperative holding area. The LEFT lower extremity was initialized and marked. Patient received 2 g Ancef IV for bacterial prophylaxis. Patient was taken back to the operative room where transferred operative table. Patient was placed under spinal anesthesia. Once adequate anesthetized he was carefully placed onto the hip positioner the nonoperative lower extremity and bilateral upper extremities were carefully padded and the peroneal nerve was padded and on the nonoperative extremity. The operative extremity was placed in a traction along with adduction and internal rotation. A surgical team debriefing was performed ensuring all instrumentation was available, the surgical procedure was discussed with possible concerns reviewed. A timeout was done identifying correct patient, procedure and extremity everyone in attendance agree with this and verbalized no concerns. Reduction maneuver with the use of the hip traction table were done and C-arm fluoroscopy was used to confirm optimal reduction of the intertrochanteric fracture. Once this was confirmed the lower extremity was prepped with chlor prep and draped in a sterile fashion. At this point a small skin incision was made proximal to the greater trochanter. The guidewire was placed onto the tip of the trochanter advanced down to the level of the lesser trochanter. AP and lateral fluoroscopy was used to confirm appropriate placement of the guidewire. The skin incision was then extended and the underlying fascia opened up carefully to the tip of the greater trochanter. The entry reamer was then used and advanced to the level of the lesser trochanter. The ball-tipped guidewire was placed and advanced down the femoral shaft. Utilizing the measuring device measured the appropriate size nail and began reaming sequentially. A marsha long gamma nail was opened and placed onto the aiming arm and advanced down the shaft of the femur. AP and lateral fluoroscopy was then used to confirm appropriate placement of the nail. I then turned my attention to the compression screw fixation in the femoral head. The trochars were advanced to the skin, a skin incision was made, careful dissection down to the fascia to the lateral femoral cortex was then partaken. The guidewire was then used and placed in the center center position with the tip apex distance less than 25 mm. Once this position was obtained the size of the compression screw was measured. AP and lateral fluoroscopy used to confirm appropriate placement of our guide wire. The step reamer was used to drill up through the femoral neck and head. I then carefully advanced the compression screw into position. AP and lateral fluoroscopy was done to confirm appropriate placement of the compression screw this was then locked into position proximally. The compression screw was then disengaged from its mounting device and the guidewire was removed. Lastly proceeded with locking of the nail distally. With utilization of the C arm perfect circles were obtained a small skin incision was made blunt dissection was performed with a hemostat. I then drilled the near and far cortices. Measured the appropriate sized distal locking screw and secured it into position. This step was repeated and a second screw placed in the static hole. At this point AP/lateral and oblique views of the proximal and distal aspect of the nail were taken confirming appropriate placement of the compression screw, distal locking screw and intramedullary nail. Once this was confirmed I proceeded with copious irrigation of the proximal and distal wounds. The deep tissues were closed with 0 Vicryl suture, subcutaneous tissues were closed with 3-0 Monocryl suture. The skin was closed a running 3-0 subcuticular Monocryl suture and reinforced with Dermabond & Steri-Strips. A dressing was placed. No evidence of malrotation. Sponge counts, instrument counts and needle counts were correct. Patient was then transferred from the operating room table to the operating room stretcher. The was no intraoperative complications patient tolerated procedure well was stable to PACU. Implants used: [place] 11 x 380 mm 125 Short Gamma Nail with a 95 mm compression screw Postoperative plan: Patient will begin physical therapy on postop day #1 with Xarelto daily.
[2017-09-09] MEDS: FENTANYL CITRATE INJ/PF 100 MCG/2 ML AMPUL ONE ×2 (14:58→15:13)
[2017-09-09] MEDS: MORPHINE SULFATE 10 MG/ML INJ ONE ×2 (15:35→15:45)
--- NOTE | 2017-09-09 15:38 | RADIOLOGY REPORT (SQ) ---
EXAM DESCRIPTION: HIP LEFT AP/LATERAL; NO CHG FLUORO COMPLETED DATE/TIME: 09/09/2017 2:48 pm REASON FOR STUDY: LEFT HIP INTRAMEDULLARY GAMMA NAIL COMPARISON: AP pelvis 09/08/2017 FLUOROSCOPY TIME: 1.6 minutes 13 digital C-arm images saved to PACS. TECHNIQUE: Intra-operative images acquired during surgical procedure to evaluate progress. NUMBER OF IMAGES: Cine fluoroscopic images. LIMITATIONS: None. FINDINGS: Intraoperative films during ORIF left proximal femoral fracture. A long intramedullary na il and lag screw are present. Good alignment at the fracture site. IMPRESSION: Intra procedural imaging and fluoro COMMENT: Quality ID [id number]: Final reports for procedures using fluoroscopy that document radiation exp osure indices, or exposure time and number of fluorographic images (if radiation exposure indices are not available) Please consult full operative report of the attending physician for description of the procedure. TECHNICAL DOCUMENTATION: JOB ID: [id number] [employer]- All Rights Reserved
[2017-09-09] MEDS: MORPHINE SULFATE 10 MG/ML INJ IV ONE ×2 (15:40→17:16)
[2017-09-09] MEDS: CEFAZOLIN 2 GM/D5W RTU 2 GM/50 ML RTUPB IV SCH ×2 (17:25→23:28)
[2017-09-09] MEDS: RIVAROXABAN 10 MG TABLET PO SCH (21:31)
[2017-09-10] MEDS: CEFAZOLIN 2 GM/D5W RTU 2 GM/50 ML RTUPB IV SCH ×2 (05:22→11:37)
[2017-09-10] MEDS: HYDROMORPHONE HCL INJ/PF 2 MG/ML AMPULE IV PRN ×6 (05:53→22:15)
[2017-09-10 06:10] LABS: ABSOLUTE LYMPHOCYTES (AUTO) 1.1 10^3/uL (0.5-4.7); ABSOLUTE MONOCYTES (AUTO) 0.8 10^3/uL (0.1-1.4); ABSOLUTE NEUT (AUTO) 7.8 10^3/uL (1.7-8.2); BASOPHILS % (AUTO) 0.1 % (0-2); HEMATOCRIT 27.1 % (36.0-47.0); LYMPHOCYTES % (AUTO) 11.3 % (13-45); MEAN CORPUSCULAR HEMOGLOBIN 30.2 pg (27.0-33.4); MEAN CORPUSCULAR HGB CONC 34.3 g/dL (32.0-36.0); MEAN CORPUSCULAR VOLUME 88 fl (80-97); MONOCYTES % (AUTO) 8.7 % (3-13); PLATELET COUNT 222 10^3/uL (150-450); RED BLOOD COUNT 3.08 10^6/uL (3.72-5.28); RED CELL DISTRIBUTION WIDTH 12.8 % (11.5-14.0); SEGMENTED NEUTROPHILS % (AUTO) 79.9 % (42-78); TOTAL CELLS COUNTED % (AUTO) 100 %; WHITE BLOOD COUNT 9.8 10^3/uL (4.0-10.5)
[2017-09-10 06:27] LABS: ANION GAP 8 (5-19); BLOOD UREA NITROGEN 14 mg/dL (7-20); CALCIUM 8.8 mg/dL (8.4-10.2); CARBON DIOXIDE 28 mmol/L (22-30); CHLORIDE 105 mmol/L (98-107); GLUCOSE 146 mg/dL (75-110); SODIUM 140.7 mmol/L (137-145)
[2017-09-10 07:10] LABS: HEMOGLOBIN 9.3 g/dL (12.0-15.5)
[2017-09-10] MEDS: LANSOPRAZOLE 30 MG TAB.RAP.DR PO SCH ×2 (07:38→15:46)
[2017-09-10] MEDS: DOCUSATE SODIUM 100 MG CAPSULE PO SCH ×2 (09:04→17:25)
[2017-09-10] MEDS: LOSARTAN POTASSIUM 50 MG TABLET PO SCH ×2 (09:05→22:18)
[2017-09-10] MEDS: METOPROLOL SUCCINATE 25 MG TAB.SR.24H PO SCH ×2 (09:05→22:13)
[2017-09-10] MEDS: AMLODIPINE BESYLATE 2.5 MG TABLET PO SCH ×2 (09:05→22:13)
--- NOTE | 2017-09-10 11:16 | PDOC PROGRESS REPORT ---
Subjective Progress Note for:: 09/10/17 Subjective:: Patient was able to stand with physical therapy today. States her pain has notably improved after surgery. Reason For Visit: HIP FRACTURE Physical Exam Vital Signs: Temp Pulse Resp BP Pulse Ox 97.9 F 67 16 118/52 L 96 09/10/17 07:59 09/10/17 07:59 09/10/17 07:59 09/10/17 07:59 09/10/17 07:59 Intake & Output 09/09/17 09/10/17 09/11/17 06:59 06:59 06:59 Intake Total 460 5060 Output Total 2535 Balance 460 2525 Weight 77.11 kg 77.11 kg Musculoskeletal exam: PRESENT: other - Left hip: Dressing clean/dry/intact no erythema or drainage. Intact plantar flexion/dorsiflexion. No calf tenderness. No evidence of limb length inequality or malrotation Results Laboratory Results: 09/10/17 05:27 09/10/17 05:27 09/10/17 09/10/17 05:27 05:27 WBC 9.8 RBC 3.08 L Hgb 9.3 L D Hct 27.1 L MCV 88 MCH 30.2 MCHC 34.3 RDW 12.8 Plt Count 222 Seg Neutrophils % 79.9 H Lymphocytes % 11.3 L Monocytes % 8.7 Eosinophils % 0.0 Basophils % 0.1 Absolute Neutrophils 7.8 Absolute Lymphocytes 1.1 Absolute Monocytes 0.8 Absolute Eosinophils 0.0 Absolute Basophils 0.0 Sodium 140.7 Potassium 4.0 Chloride 105 Carbon Dioxide 28 Anion Gap 8 BUN 14 Creatinine 0.64 Est GFR ( Amer) > 60 Est GFR (Non-Af Amer) > 60 Glucose 146 H Calcium 8.8 Impressions: Chest X-Ray 09/08/17 00:00 IMPRESSION: NO ACUTE RADIOGRAPHIC FINDING IN THE CHEST. Fluoroscopy 09/09/17 00:00 IMPRESSION: Intra procedural imaging and fluoro Hip X-Ray 09/09/17 00:00 IMPRESSION: Intra procedural imaging and fluoro Assessment & Plan - Diagnosis (1) Fracture, intertrochanteric, left femur Qualifiers: Encounter type: initial encounter Fracture type: closed Fracture alignment: displaced Qualified Code(s): S72.142A - Displaced intertrochanteric fracture of left femur, initial encounter for closed fracture Is this a current diagnosis for this admission?: Yes Plan: Status post left hip IM nail #1 physical therapy weightbearing as tolerated #2 pain control #3 Xarelto for DVT prophylaxis #4 discharge planning patient will require group home facility.
--- NOTE | 2017-09-10 13:48 | PDOC PROGRESS REPORT ---
Subjective Progress Note for:: 09/10/17 Subjective:: Patient reports that she is having minimal pain this morning. Reason For Visit: HIP FRACTURE Physical Exam Vital Signs: Temp Pulse Resp BP Pulse Ox 97.8 F 71 18 109/40 L 97 09/10/17 12:01 09/10/17 12:01 09/10/17 12:01 09/10/17 12:01 09/10/17 12:01 Intake & Output 09/09/17 09/10/17 09/11/17 06:59 06:59 06:59 Intake Total 460 5060 Output Total 2535 Balance 460 2525 Weight 77.11 kg 77.11 kg General appearance: PRESENT: no acute distress Eye exam: PRESENT: conjunctiva pink. ABSENT: scleral icterus Ear exam: PRESENT: normal external ear exam Mouth exam: PRESENT: moist, tongue midline Neck exam: ABSENT: JVD Respiratory exam: PRESENT: clear to auscultation shawn. ABSENT: rales, rhonchi, wheezes Cardiovascular exam: PRESENT: RRR. ABSENT: diastolic murmur, rubs, systolic murmur GI/Abdominal exam: PRESENT: normal bowel sounds, soft. ABSENT: distended, guarding, mass, organolmegaly, rebound, tenderness Extremities exam: ABSENT: calf tenderness, clubbing, pedal edema Neurological exam: PRESENT: alert, awake, oriented to person, oriented to place , oriented to time, oriented to situation, CN II-XII grossly intact. ABSENT: motor sensory deficit Psychiatric exam: PRESENT: appropriate affect Skin exam: PRESENT: dry, intact, warm. ABSENT: cyanosis, rash Results Laboratory Results: 09/10/17 05:27 09/10/17 05:27 09/10/17 09/10/17 05:27 05:27 WBC 9.8 RBC 3.08 L Hgb 9.3 L D Hct 27.1 L MCV 88 MCH 30.2 MCHC 34.3 RDW 12.8 Plt Count 222 Seg Neutrophils % 79.9 H Lymphocytes % 11.3 L Monocytes % 8.7 Eosinophils % 0.0 Basophils % 0.1 Absolute Neutrophils 7.8 Absolute Lymphocytes 1.1 Absolute Monocytes 0.8 Absolute Eosinophils 0.0 Absolute Basophils 0.0 Sodium 140.7 Potassium 4.0 Chloride 105 Carbon Dioxide 28 Anion Gap 8 BUN 14 Creatinine 0.64 Est GFR ( Amer) > 60 Est GFR (Non-Af Amer) > 60 Glucose 146 H Calcium 8.8 Impressions: Chest X-Ray 09/08/17 00:00 IMPRESSION: NO ACUTE RADIOGRAPHIC FINDING IN THE CHEST. Fluoroscopy 09/09/17 00:00 IMPRESSION: Intra procedural imaging and fluoro Hip X-Ray 09/09/17 00:00 IMPRESSION: Intra procedural imaging and fluoro Assessment & Plan - Diagnosis (1) Fracture of left hip Qualifiers: Encounter type: sequela Fracture type: closed Qualified Code(s): S72.002S - Fracture of unspecified part of neck of left femur, sequela Is this a current diagnosis for this admission?: Yes Plan: Patient is postop of repair of her hip. She is doing well with this. Her pain is under control. (2) Diabetes mellitus, type 2 Qualifiers: Diabetes mellitus complication status: without complication Is this a current diagnosis for this admission?: Yes Plan: Continue with sliding scale insulin. (3) Hypertensive disorder Qualifiers: Hypertension type: essential hypertension Qualified Code(s): I10 - Essential (primary) hypertension Is this a current diagnosis for this admission?: Yes Plan: Blood pressure is under good control. - Time Time Spent with patient: 25-34 minutes - Inpatient Certification Medical Necessity: Need Close Monitoring Due to Risk of Patient Decompensation
[2017-09-10] MEDS: RIVAROXABAN 10 MG TABLET PO SCH (22:14)
[2017-09-11] MEDS: HYDROMORPHONE HCL INJ/PF 2 MG/ML AMPULE IV PRN ×6 (01:32→22:11)
[2017-09-11 05:03] LABS: HEMATOCRIT 23.6 % (36.0-47.0); HEMOGLOBIN 8.2 g/dL (12.0-15.5); MEAN CORPUSCULAR HEMOGLOBIN 30.6 pg (27.0-33.4); MEAN CORPUSCULAR HGB CONC 34.6 g/dL (32.0-36.0); MEAN CORPUSCULAR VOLUME 88 fl (80-97); PLATELET COUNT 187 10^3/uL (150-450); RED BLOOD COUNT 2.67 10^6/uL (3.72-5.28); RED CELL DISTRIBUTION WIDTH 12.9 % (11.5-14.0); WHITE BLOOD COUNT 7.9 10^3/uL (4.0-10.5)
[2017-09-11] MEDS: LANSOPRAZOLE 30 MG TAB.RAP.DR PO SCH ×2 (09:31→15:55)
[2017-09-11] MEDS: AMLODIPINE BESYLATE 2.5 MG TABLET PO SCH ×2 (09:32→22:08)
[2017-09-11] MEDS: DOCUSATE SODIUM 100 MG CAPSULE PO SCH ×2 (09:32→17:50)
[2017-09-11] MEDS: LOSARTAN POTASSIUM 50 MG TABLET PO SCH ×2 (09:32→22:08)
[2017-09-11] MEDS: METOPROLOL SUCCINATE 25 MG TAB.SR.24H PO SCH ×2 (09:33→22:08)
--- NOTE | 2017-09-11 09:42 | PDOC PROGRESS REPORT ---
Subjective Progress Note for:: 09/11/17 Subjective:: Patient reports that she is having minimal pain this morning. Reason For Visit: HIP FRACTURE Physical Exam Vital Signs: Temp Pulse Resp BP Pulse Ox 98.2 F 85 16 125/55 L 97 09/11/17 07:49 09/11/17 07:49 09/11/17 07:49 09/11/17 07:49 09/11/17 07:49 Intake & Output 09/10/17 09/11/17 09/12/17 06:59 06:59 06:59 Intake Total 5060 2020 Output Total 2535 900 Balance 2525 1120 Weight 77.11 kg 77.11 kg General appearance: PRESENT: no acute distress Eye exam: PRESENT: conjunctiva pink. ABSENT: scleral icterus Mouth exam: PRESENT: moist, tongue midline Neck exam: ABSENT: JVD Respiratory exam: PRESENT: clear to auscultation shawn. ABSENT: rales, rhonchi, wheezes Cardiovascular exam: PRESENT: RRR. ABSENT: diastolic murmur, rubs, systolic murmur GI/Abdominal exam: PRESENT: normal bowel sounds, soft. ABSENT: distended, guarding, mass, organolmegaly, rebound, tenderness Extremities exam: PRESENT: full ROM. ABSENT: calf tenderness, clubbing, pedal edema Neurological exam: PRESENT: alert, awake, oriented to person, oriented to place , oriented to time, oriented to situation, CN II-XII grossly intact. ABSENT: motor sensory deficit Skin exam: PRESENT: dry, intact, warm. ABSENT: cyanosis, rash Results Laboratory Results: 09/11/17 04:37 09/10/17 05:27 09/11/17 04:37 WBC 7.9 RBC 2.67 L Hgb 8.2 L Hct 23.6 L MCV 88 MCH 30.6 MCHC 34.6 RDW 12.9 Plt Count 187 Impressions: Chest X-Ray 09/08/17 00:00 IMPRESSION: NO ACUTE RADIOGRAPHIC FINDING IN THE CHEST. Fluoroscopy 09/09/17 00:00 IMPRESSION: Intra procedural imaging and fluoro Hip X-Ray 09/09/17 00:00 IMPRESSION: Intra procedural imaging and fluoro Assessment & Plan - Diagnosis (1) Fracture of left hip Qualifiers: Encounter type: sequela Fracture type: closed Qualified Code(s): S72.002S - Fracture of unspecified part of neck of left femur, sequela Is this a current diagnosis for this admission?: Yes Plan: Patient is postop of repair of her hip. She is doing well with this. Her pain is under control. (2) Diabetes mellitus, type 2 Qualifiers: Diabetes mellitus complication status: without complication Is this a current diagnosis for this admission?: Yes Plan: Continue with sliding scale insulin. (3) Hypertensive disorder Qualifiers: Hypertension type: essential hypertension Qualified Code(s): I10 - Essential (primary) hypertension Is this a current diagnosis for this admission?: Yes Plan: Blood pressure is under good control. - Time Time Spent with patient: 15-24 minutes - Inpatient Certification Medical Necessity: Need Close Monitoring Due to Risk of Patient Decompensation
[2017-09-11] MEDS: RIVAROXABAN 10 MG TABLET PO SCH (22:11)
[2017-09-12] MEDS: HYDROMORPHONE HCL INJ/PF 2 MG/ML AMPULE IV PRN ×6 (00:47→23:55)
[2017-09-12 05:42] LABS: HEMATOCRIT 24.3 % (36.0-47.0); HEMOGLOBIN 8.2 g/dL (12.0-15.5); MEAN CORPUSCULAR HEMOGLOBIN 30.4 pg (27.0-33.4); MEAN CORPUSCULAR VOLUME 89 fl (80-97); PLATELET COUNT 199 10^3/uL (150-450); RED BLOOD COUNT 2.72 10^6/uL (3.72-5.28); RED CELL DISTRIBUTION WIDTH 13.1 % (11.5-14.0); WHITE BLOOD COUNT 8.1 10^3/uL (4.0-10.5)
[2017-09-12] MEDS: LANSOPRAZOLE 30 MG TAB.RAP.DR PO SCH ×2 (07:34→16:05)
--- NOTE | 2017-09-12 07:37 | PDOC PROGRESS REPORT ---
Subjective Subjective:: Patient was able to stand with physical therapy today. She states she continues to have discomfort especially with with physical therapy but states pain is tolerable. Denies chest pain or shortness of breath. Reason For Visit: HIP FRACTURE Physical Exam Vital Signs: Temp Pulse Resp BP Pulse Ox 98.1 F 87 18 114/48 L 92 09/12/17 04:00 09/11/17 23:54 09/11/17 23:54 09/11/17 23:54 09/11/17 23:54 Intake & Output 09/11/17 09/12/17 09/13/17 06:59 06:59 06:59 Intake Total 2019 1939 Output Total 900 650 Balance 1120 1290 Weight 77.11 kg 82 kg Musculoskeletal exam: PRESENT: other - Left hip: Dressing clean/dry/intact no erythema or drainage. Moderate thigh swelling compartments soft and compressible no sign of compartment syndrome. No crepitus with hip range of motion. No pain with range of motion. No calf tenderness. Intact plantar flexion/dorsiflexion. No sensory deficits Results Laboratory Results: 09/12/17 04:47 09/10/17 05:27 09/12/17 04:47 WBC 8.1 RBC 2.72 L Hgb 8.2 L Hct 24.3 L MCV 89 MCH 30.4 MCHC 34.0 RDW 13.1 Plt Count 199 Impressions: Chest X-Ray 09/08/17 00:00 IMPRESSION: NO ACUTE RADIOGRAPHIC FINDING IN THE CHEST. Fluoroscopy 09/09/17 00:00 IMPRESSION: Intra procedural imaging and fluoro Hip X-Ray 09/09/17 00:00 IMPRESSION: Intra procedural imaging and fluoro Assessment & Plan - Diagnosis (1) Fracture, intertrochanteric, left femur Qualifiers: Encounter type: initial encounter Fracture type: closed Fracture alignment: displaced Qualified Code(s): S72.142A - Displaced intertrochanteric fracture of left femur, initial encounter for closed fracture Is this a current diagnosis for this admission?: Yes Plan: Status post left hip IM nail #1 physical therapy weightbearing as tolerated #2 pain control #3 Xarelto for DVT prophylaxis #4 acute on chronic blood loss anemia currently stable 8.2/24.3 patient remains asymptomatic #5 discharge planning patient will require residential facility.
[2017-09-12] MEDS: LOSARTAN POTASSIUM 50 MG TABLET PO SCH ×2 (10:06→21:22)
[2017-09-12] MEDS: DOCUSATE SODIUM 100 MG CAPSULE PO SCH ×2 (10:06→17:30)
[2017-09-12] MEDS: OXYCODONE HCL IR 5 MG TABLET PO PRN ×3 (10:07→22:22)
[2017-09-12] MEDS: METOPROLOL SUCCINATE 25 MG TAB.SR.24H PO SCH ×2 (10:07→21:22)
[2017-09-12] MEDS: AMLODIPINE BESYLATE 2.5 MG TABLET PO SCH ×2 (10:13→21:22)
--- NOTE | 2017-09-12 14:17 | PDOC PROGRESS REPORT ---
Subjective Progress Note for:: 09/12/17 Subjective:: Patient reports that she is having minimal pain this morning. Reason For Visit: HIP FRACTURE Physical Exam Vital Signs: Temp Pulse Resp BP Pulse Ox 97.5 F 81 18 112/47 L 98 09/12/17 11:51 09/12/17 11:51 09/12/17 11:51 09/12/17 11:51 09/12/17 11:51 Intake & Output 09/11/17 09/12/17 09/13/17 06:59 06:59 06:59 Intake Total 2019 1939 Output Total 900 650 Balance 1120 1290 Weight 77.11 kg 82 kg General appearance: PRESENT: no acute distress, well-developed, well-nourished Eye exam: PRESENT: conjunctiva pink. ABSENT: scleral icterus Mouth exam: PRESENT: moist, tongue midline Neck exam: ABSENT: JVD Respiratory exam: PRESENT: clear to auscultation shawn. ABSENT: rales, rhonchi, wheezes Cardiovascular exam: PRESENT: RRR. ABSENT: diastolic murmur, rubs, systolic murmur GI/Abdominal exam: PRESENT: normal bowel sounds, soft. ABSENT: distended, guarding, mass, organolmegaly, rebound, tenderness Extremities exam: ABSENT: calf tenderness, clubbing, pedal edema Neurological exam: PRESENT: alert, awake, oriented to person, oriented to place , oriented to time, oriented to situation, CN II-XII grossly intact. ABSENT: motor sensory deficit Psychiatric exam: PRESENT: appropriate affect Skin exam: PRESENT: dry, intact, warm. ABSENT: cyanosis, rash Results Laboratory Results: 09/12/17 04:47 09/10/17 05:27 09/12/17 04:47 WBC 8.1 RBC 2.72 L Hgb 8.2 L Hct 24.3 L MCV 89 MCH 30.4 MCHC 34.0 RDW 13.1 Plt Count 199 Impressions: Chest X-Ray 09/08/17 00:00 IMPRESSION: NO ACUTE RADIOGRAPHIC FINDING IN THE CHEST. Fluoroscopy 09/09/17 00:00 IMPRESSION: Intra procedural imaging and fluoro Hip X-Ray 09/09/17 00:00 IMPRESSION: Intra procedural imaging and fluoro Assessment & Plan - Diagnosis (1) Fracture of left hip Qualifiers: Encounter type: sequela Fracture type: closed Qualified Code(s): S72.002S - Fracture of unspecified part of neck of left femur, sequela Is this a current diagnosis for this admission?: Yes Plan: Patient is postop of repair of her hip. She is doing well with this. Her pain is under control. (2) Diabetes mellitus, type 2 Qualifiers: Diabetes mellitus complication status: without complication Is this a current diagnosis for this admission?: Yes Plan: Continue with sliding scale insulin. (3) Hypertensive disorder Qualifiers: Hypertension type: essential hypertension Qualified Code(s): I10 - Essential (primary) hypertension Is this a current diagnosis for this admission?: Yes Plan: Blood pressure is under good control. - Time Time Spent with patient: 25-34 minutes - Inpatient Certification Medical Necessity: Need Close Monitoring Due to Risk of Patient Decompensation - Plan Summary Plan Summary: Will need rehab placement this week.
[2017-09-12] MEDS: RIVAROXABAN 10 MG TABLET PO SCH (21:22)
[2017-09-12] MEDS: MAGNESIUM HYDROXIDE SUSP 30 ML UDCUP PO PRN (21:23)
[2017-09-13] MEDS: OXYCODONE HCL IR 5 MG TABLET PO PRN ×5 (04:00→22:30)
[2017-09-13] MEDS: HYDROMORPHONE HCL INJ/PF 2 MG/ML AMPULE IV PRN ×3 (04:54→15:24)
[2017-09-13 05:23] LABS: ABSOLUTE EOSINOPHILS # (AUTO) 0.2 10^3/uL (0.0-0.6); ABSOLUTE LYMPHOCYTES (AUTO) 1.8 10^3/uL (0.5-4.7); ABSOLUTE MONOCYTES (AUTO) 0.6 10^3/uL (0.1-1.4); ABSOLUTE NEUT (AUTO) 4.7 10^3/uL (1.7-8.2); BASOPHILS % (AUTO) 0.6 % (0-2); EOSINOPHILS % (AUTO) 3.1 % (0-6); HEMATOCRIT 22.5 % (36.0-47.0); LYMPHOCYTES % (AUTO) 24.2 % (13-45); MEAN CORPUSCULAR HEMOGLOBIN 30.3 pg (27.0-33.4); MEAN CORPUSCULAR HGB CONC 34.2 g/dL (32.0-36.0); MEAN CORPUSCULAR VOLUME 89 fl (80-97); MONOCYTES % (AUTO) 7.9 % (3-13); PLATELET COUNT 231 10^3/uL (150-450); RED BLOOD COUNT 2.54 10^6/uL (3.72-5.28); RED CELL DISTRIBUTION WIDTH 12.6 % (11.5-14.0); SEGMENTED NEUTROPHILS % (AUTO) 64.2 % (42-78); TOTAL CELLS COUNTED % (AUTO) 100 %; WHITE BLOOD COUNT 7.3 10^3/uL (4.0-10.5)
[2017-09-13 05:50] LABS: ANION GAP 7 (5-19); BLOOD UREA NITROGEN 18 mg/dL (7-20); CALCIUM 8.8 mg/dL (8.4-10.2); CARBON DIOXIDE 31 mmol/L (22-30); CHLORIDE 100 mmol/L (98-107); GLUCOSE 153 mg/dL (75-110); POTASSIUM 3.5 mmol/L (3.6-5.0); SODIUM 138.2 mmol/L (137-145)
[2017-09-13 06:07] LABS: HEMOGLOBIN 7.7 g/dL (12.0-15.5)
--- NOTE | 2017-09-13 08:08 | PDOC PROGRESS REPORT ---
Subjective Progress Note for:: 09/13/17 Subjective:: The patient states to feel better. She is still having some pain in the hip. Discussed the need to go to the rehab. It will be very hard for her and her to manage things at home. The patient is a green. Her daughter is at the bedside and is agreeing with my decision. Discussed the need for transfusion because of dilutional anemia and possibly some blood loss during surgery. Reason For Visit: HIP FRACTURE Physical Exam Vital Signs: Temp Pulse Resp BP Pulse Ox 97.6 F 92 20 117/51 L 95 09/12/17 23:51 09/12/17 23:51 09/12/17 23:51 09/12/17 23:51 09/12/17 23:51 Intake & Output 09/12/17 09/13/17 09/14/17 06:59 06:59 06:59 Intake Total 1940 1580 Output Total 650 Balance 1290 1580 Weight 82 kg 92.2 kg General appearance: PRESENT: mild distress Head exam: PRESENT: atraumatic Eye exam: PRESENT: conjunctiva pale Neck exam: ABSENT: carotid bruit, JVD Respiratory exam: PRESENT: clear to auscultation shawn Cardiovascular exam: PRESENT: RRR, +S1, +S2 GI/Abdominal exam: PRESENT: normal bowel sounds, soft Extremities exam: PRESENT: tenderness Musculoskeletal exam: PRESENT: tenderness Neurological exam: PRESENT: alert, awake Results Laboratory Results: 09/13/17 04:26 09/13/17 04:26 09/13/17 09/13/17 09/13/17 04:26 04:26 06:27 WBC 7.3 RBC 2.54 L Hgb 7.7 L Hct 22.5 L MCV 89 MCH 30.3 MCHC 34.2 RDW 12.6 Plt Count 231 Seg Neutrophils % 64.2 Lymphocytes % 24.2 Monocytes % 7.9 Eosinophils % 3.1 Basophils % 0.6 Absolute Neutrophils 4.7 Absolute Lymphocytes 1.8 Absolute Monocytes 0.6 Absolute Eosinophils 0.2 Absolute Basophils 0.0 Sodium 138.2 Potassium 3.5 L Chloride 100 Carbon Dioxide 31 H Anion Gap 7 BUN 18 Creatinine 0.67 Est GFR ( Amer) > 60 Est GFR (Non-Af Amer) > 60 Glucose 153 H Calcium 8.8 Blood Type O POSITIVE Antibody Screen NEGATIVE Impressions: Chest X-Ray 09/08/17 00:00 IMPRESSION: NO ACUTE RADIOGRAPHIC FINDING IN THE CHEST. Fluoroscopy 09/09/17 00:00 IMPRESSION: Intra procedural imaging and fluoro Hip X-Ray 09/09/17 00:00 IMPRESSION: Intra procedural imaging and fluoro Assessment & Plan - Diagnosis (1) Diabetes mellitus, type 2 Qualifiers: Diabetes mellitus complication status: without complication Is this a current diagnosis for this admission?: Yes (2) Fracture of left hip Qualifiers: Encounter type: sequela Fracture type: closed Qualified Code(s): S72.002S - Fracture of unspecified part of neck of left femur, sequela Is this a current diagnosis for this admission?: Yes Plan: We will continue with physical therapy and await for the rehab placement at either [facility] or [facility]. The patient would consider [facility]. (3) Hypertensive disorder Qualifiers: Hypertension type: essential hypertension Qualified Code(s): I10 - Essential (primary) hypertension Is this a current diagnosis for this admission?: Yes Plan: Stable continue current treatment (4) Anemia Qualifiers: Anemia type: unspecified type Qualified Code(s): D64.9 - Anemia, unspecified Is this a current diagnosis for this admission?: Yes Plan: We will transfuse 2 units of packed red blood cells. Will give Lasix between the units and recheck the blood counts in the morning
[2017-09-13] MEDS: LANSOPRAZOLE 30 MG TAB.RAP.DR PO SCH ×2 (08:26→15:23)
--- NOTE | 2017-09-13 08:31 | PDOC PROGRESS REPORT ---
Subjective Subjective:: Patient was able to ambulate 150 feet in physical therapy yesterday. She states she continues to have discomfort especially with with physical therapy but states pain is tolerable. Denies chest pain or shortness of breath. Does note on occasional lightheadedness. Reason For Visit: HIP FRACTURE Physical Exam Vital Signs: Temp Pulse Resp BP Pulse Ox 97.6 F 92 20 117/51 L 95 09/12/17 23:51 09/12/17 23:51 09/12/17 23:51 09/12/17 23:51 09/12/17 23:51 Intake & Output 09/12/17 09/13/17 09/14/17 06:59 06:59 06:59 Intake Total 1940 1580 Output Total 650 Balance 1290 1580 Weight 82 kg 92.2 kg Musculoskeletal exam: PRESENT: other - Left hip: Dressing clean/dry/intact. Mild thigh swelling unchanged. No calf tenderness. Intact plantar flexion/ dorsiflexion. Results Laboratory Results: 09/13/17 04:26 09/13/17 04:26 09/13/17 09/13/17 09/13/17 04:26 04:26 06:27 WBC 7.3 RBC 2.54 L Hgb 7.7 L Hct 22.5 L MCV 89 MCH 30.3 MCHC 34.2 RDW 12.6 Plt Count 231 Seg Neutrophils % 64.2 Lymphocytes % 24.2 Monocytes % 7.9 Eosinophils % 3.1 Basophils % 0.6 Absolute Neutrophils 4.7 Absolute Lymphocytes 1.8 Absolute Monocytes 0.6 Absolute Eosinophils 0.2 Absolute Basophils 0.0 Sodium 138.2 Potassium 3.5 L Chloride 100 Carbon Dioxide 31 H Anion Gap 7 BUN 18 Creatinine 0.67 Est GFR ( Amer) > 60 Est GFR (Non-Af Amer) > 60 Glucose 153 H Calcium 8.8 Blood Type O POSITIVE Antibody Screen NEGATIVE Impressions: Chest X-Ray 09/08/17 00:00 IMPRESSION: NO ACUTE RADIOGRAPHIC FINDING IN THE CHEST. Fluoroscopy 09/09/17 00:00 IMPRESSION: Intra procedural imaging and fluoro Hip X-Ray 09/09/17 00:00 IMPRESSION: Intra procedural imaging and fluoro Assessment & Plan - Diagnosis (1) Fracture, intertrochanteric, left femur Qualifiers: Encounter type: initial encounter Fracture type: closed Fracture alignment: displaced Qualified Code(s): S72.142A - Displaced intertrochanteric fracture of left femur, initial encounter for closed fracture Is this a current diagnosis for this admission?: Yes Plan: Status post left hip IM nail #1 physical therapy weightbearing as tolerated #2 pain control #3 Xarelto for DVT prophylaxis #4 acute on chronic blood loss anemia her hemoglobin and hematocrit did decrease thus we will proceed with 2 units packed red blood cells. #5 discharge planning patient will require custodial facility Stable for discharge from an orthopedic standpoint once bed available
[2017-09-13] MEDS: METOPROLOL SUCCINATE 25 MG TAB.SR.24H PO SCH ×2 (09:44→21:17)
[2017-09-13] MEDS: DOCUSATE SODIUM 100 MG CAPSULE PO SCH ×2 (09:44→17:23)
[2017-09-13] MEDS: AMLODIPINE BESYLATE 2.5 MG TABLET PO SCH ×2 (09:45→21:16)
[2017-09-13] MEDS: LOSARTAN POTASSIUM 50 MG TABLET PO SCH ×2 (09:45→21:17)
[2017-09-13] MEDS ORDERED: FUROSEMIDE 40 MG TABLET PO PRN (14:06)
[2017-09-13] MEDS ORDERED: FUROSEMIDE INJ/PF 40 MG/4 ML SDV IV PRN (14:31)
[2017-09-13] MEDS: RIVAROXABAN 10 MG TABLET PO SCH (21:17)
[2017-09-14] MEDS: OXYCODONE HCL IR 5 MG TABLET PO PRN ×5 (02:08→20:00)
[2017-09-14 05:10] LABS: ABSOLUTE EOSINOPHILS # (AUTO) 0.2 10^3/uL (0.0-0.6); ABSOLUTE LYMPHOCYTES (AUTO) 1.2 10^3/uL (0.5-4.7); ABSOLUTE MONOCYTES (AUTO) 0.6 10^3/uL (0.1-1.4); ABSOLUTE NEUT (AUTO) 3.8 10^3/uL (1.7-8.2); BASOPHILS % (AUTO) 0.5 % (0-2); LYMPHOCYTES % (AUTO) 20.6 % (13-45); MEAN CORPUSCULAR HEMOGLOBIN 29.9 pg (27.0-33.4); MEAN CORPUSCULAR HGB CONC 34.7 g/dL (32.0-36.0); MEAN CORPUSCULAR VOLUME 86 fl (80-97); MONOCYTES % (AUTO) 9.9 % (3-13); PLATELET COUNT 240 10^3/uL (150-450); RED BLOOD COUNT 3.48 10^6/uL (3.72-5.28); RED CELL DISTRIBUTION WIDTH 13.7 % (11.5-14.0); TOTAL CELLS COUNTED % (AUTO) 100 %; WHITE BLOOD COUNT 5.8 10^3/uL (4.0-10.5)
[2017-09-14 05:12] LABS: HEMOGLOBIN 10.4 g/dL (12.0-15.5)
[2017-09-14 05:19] LABS: ANION GAP 8 (5-19); BLOOD UREA NITROGEN 13 mg/dL (7-20); CALCIUM 8.7 mg/dL (8.4-10.2); CARBON DIOXIDE 30 mmol/L (22-30); CHLORIDE 101 mmol/L (98-107); GLUCOSE 127 mg/dL (75-110); POTASSIUM 3.5 mmol/L (3.6-5.0); SODIUM 138.5 mmol/L (137-145)
[2017-09-14] MEDS ORDERED: MAGNESIUM CITRATE 296 ML BOTTLE PO ONE (09:00)
[2017-09-14] MEDS: LANSOPRAZOLE 30 MG TAB.RAP.DR PO SCH ×2 (09:32→16:58)
[2017-09-14] MEDS: LOSARTAN POTASSIUM 50 MG TABLET PO SCH ×2 (09:32→21:36)
[2017-09-14] MEDS: DOCUSATE SODIUM 100 MG CAPSULE PO SCH ×2 (09:32→16:58)
[2017-09-14] MEDS: AMLODIPINE BESYLATE 2.5 MG TABLET PO SCH ×2 (09:32→21:34)
[2017-09-14] MEDS: METOPROLOL SUCCINATE 25 MG TAB.SR.24H PO SCH ×2 (09:33→21:35)
[2017-09-14] MEDS: MAGNESIUM HYDROXIDE SUSP 30 ML UDCUP PO PRN (11:39)
--- NOTE | 2017-09-14 12:32 | PDOC PROGRESS REPORT ---
Subjective Progress Note for:: 09/14/17 Subjective:: The patient states to feel better. She is complaining of left upper rib cage discomfort when she moves around. It might have been caused by her using her arms to trying to lift herself off up after the hip fracture. She has not had a bowel movement in about 4 days. With still waiting for a response from [facility]. She is feeling much better since she has received 2 units of packed red blood cells Reason For Visit: HIP FRACTURE Physical Exam Vital Signs: Temp Pulse Resp BP Pulse Ox 98.8 F 79 16 125/53 L 95 09/13/17 19:37 09/13/17 19:37 09/13/17 19:37 09/13/17 19:37 09/13/17 19:37 Intake & Output 09/13/17 09/14/17 09/15/17 06:59 06:59 06:59 Intake Total 1580 2708 Output Total 1300 Balance 1580 1408 Weight 92.2 kg 91.4 kg General appearance: PRESENT: mild distress Head exam: PRESENT: atraumatic Eye exam: PRESENT: conjunctiva pink Neck exam: ABSENT: carotid bruit, JVD Respiratory exam: PRESENT: clear to auscultation shawn Cardiovascular exam: PRESENT: RRR, +S1, +S2 Pulses: PRESENT: +1 pedal pulses bilateral GI/Abdominal exam: PRESENT: normal bowel sounds, soft Extremities exam: PRESENT: tenderness Musculoskeletal exam: PRESENT: tenderness Additional comments: Mild tenderness on palpation over the rib cage mid axillary line Neurological exam: PRESENT: alert, awake Psychiatric exam: PRESENT: anxious Results Laboratory Results: 09/14/17 03:57 09/14/17 03:57 09/13/17 09/14/17 09/14/17 06:27 03:57 03:57 WBC 5.8 RBC 3.48 L Hgb 10.4 L D Hct 30.0 L MCV 86 MCH 29.9 MCHC 34.7 RDW 13.7 Plt Count 240 Seg Neutrophils % 65.0 Lymphocytes % 20.6 Monocytes % 9.9 Eosinophils % 4.0 Basophils % 0.5 Absolute Neutrophils 3.8 Absolute Lymphocytes 1.2 Absolute Monocytes 0.6 Absolute Eosinophils 0.2 Absolute Basophils 0.0 Sodium 138.5 Potassium 3.5 L Chloride 101 Carbon Dioxide 30 Anion Gap 8 BUN 13 Creatinine 0.60 Est GFR ( Amer) > 60 Est GFR (Non-Af Amer) > 60 Glucose 127 H Calcium 8.7 Blood Type O POSITIVE Antibody Screen NEGATIVE Impressions: Chest X-Ray 09/08/17 00:00 IMPRESSION: NO ACUTE RADIOGRAPHIC FINDING IN THE CHEST. Fluoroscopy 09/09/17 00:00 IMPRESSION: Intra procedural imaging and fluoro Hip X-Ray 09/09/17 00:00 IMPRESSION: Intra procedural imaging and fluoro Assessment & Plan - Diagnosis (1) Diabetes mellitus, type 2 Qualifiers: Diabetes mellitus complication status: without complication Is this a current diagnosis for this admission?: Yes Plan: Well controlled with sliding scale insulin coverage most probably related to the stress induced by pain (2) Fracture of left hip Qualifiers: Encounter type: sequela Fracture type: closed Qualified Code(s): S72.002S - Fracture of unspecified part of neck of left femur, sequela Is this a current diagnosis for this admission?: Yes Plan: We will continue with physical therapy and await for the rehab placement at either [facility] or [facility]. The patient would consider [facility]. (3) Hypertensive disorder Qualifiers: Hypertension type: essential hypertension Qualified Code(s): I10 - Essential (primary) hypertension Is this a current diagnosis for this admission?: Yes Plan: Stable continue current treatment (4) Anemia Qualifiers: Anemia type: unspecified type Qualified Code(s): D64.9 - Anemia, unspecified Is this a current diagnosis for this admission?: Yes Plan: Much improved with H&H 11. (5) Constipation due to pain medication therapy Is this a current diagnosis for this admission?: Yes Plan: We will use some Maxide trait. The patient can not be accepted at the rehab center if she has not had a bowel movement
[2017-09-14] MEDS: RIVAROXABAN 10 MG TABLET PO SCH (21:34)
[2017-09-15] MEDS: OXYCODONE HCL IR 5 MG TABLET PO PRN ×4 (04:04→12:27)
[2017-09-15] MEDS: LANSOPRAZOLE 30 MG TAB.RAP.DR PO SCH (08:10)
--- NOTE | 2017-09-15 08:38 | PDOC DISCHARGE SUMMARY ---
General - Admit/Disc Date/PCP Admission Date/Primary Care Provider: 09/08/17 18:18 JUAN LUIS CHENG, Discharge Date: 09/15/17 - Discharge Diagnosis (1) Diabetes mellitus, type 2 Is this a current diagnosis for this admission?: Yes (2) Fracture of left hip Is this a current diagnosis for this admission?: Yes Summary: Continue physical therapy twice a day as recommended by orthopedics (3) Hypertensive disorder Is this a current diagnosis for this admission?: Yes Summary: Continue current medications (4) Anemia Is this a current diagnosis for this admission?: Yes Summary: Resolved with stopping the IV fluids and transfusing 2 units of packed red blood cells (5) Constipation due to pain medication therapy Is this a current diagnosis for this admission?: Yes Summary: Resolved with laxatives - Additional Information Resuscitation Status: Full Code Discharge Diet: Regular Discharge Activity: Activity As Tolerated Prescriptions: Rivaroxaban [Xarelto 10 mg Tablet] 10 mg PO QHS #35 tablet Ondansetron [Zofran Odt 4 mg Tablet] 4 mg PO Q4HP PRN #40 tab.rapdis PRN Reason: Oxycodone HCl [Oxy-Ir 5 mg Tablet] 5 mg PO Q4HP PRN #60 tablet PRN Reason: Home Medications: Amlodipine Besylate [Norvasc 2.5 mg Tablet] 2.5 mg PO Q12 09/08/17 Cholecalciferol (Vitamin D3) [Vitamin D3] 1 cap PO O2NLTFO 09/08/17 Clopidogrel Bisulfate [Plavix 75 mg Tablet] 75 mg PO DAILY 09/08/17 Dicyclomine HCl [Bentyl 10 mg Capsule] 10 mg PO Q6 09/08/17 Docusate Sodium [Colace] 100 mg PO DAILY 09/08/17 Fexofenadine HCl 180 mg PO DAILY 09/08/17 Losartan Potassium [Cozaar 50 mg Tablet] 50 mg PO Q12 09/08/17 Metoprolol Succinate [Toprol Xl] 12.5 mg PO Q12 09/08/17 Montelukast Sodium [Singulair 10 mg Tablet] 10 mg PO QHS 09/08/17 Multivitamin/Iron/Folic Acid [Centrum Adults Tablet] 1 tab PO DAILY 09/08/17 [place]-3 Fatty Acids/Fish Oil [Fish Oil 1,000 mg Capsule] 1 cap PO DAILY Omeprazole 20 mg PO Q12 09/08/17 Ranitidine HCl [Zantac 150 mg Tablet] 150 mg PO Q12 09/08/17 Zolpidem Tartrate [Ambien 5 mg Tablet] 5 mg PO HSP PRN 09/08/17 Acetaminophen [Tylenol 325 mg Tablet] 650 mg PO Q6HP PRN tablet 09/15/17 Ondansetron [Zofran Odt 4 mg Tablet] 4 mg PO Q4HP PRN #40 tab.rapdis 09/15/17 Oxycodone HCl [Oxy-Ir 5 mg Tablet] 5 mg PO Q4HP PRN #60 tablet 09/15/17 Rivaroxaban [Xarelto 10 mg Tablet] 10 mg PO QHS #35 tablet 09/15/17 History of Present Illness History of Present Illness: SARAH MURILLO is a 66 year old female Hospital Course Hospital Course: The patient was admitted with a hip fracture. She was taken to the operating room by Dr. del castillo and had left hip fixed with the nail. She did quite well unfortunately she has developed significant anemia after the blood loss during surgery and IV fluid hydration. She was given 2 units of packed red blood cells. She did quite well during the hospitalization of her H&H has remained stable. She has started to physical therapy. It has been agreed that the patient would do much better going to the rehab for physical therapy. She does have a some back discomfort and will require an air mattress at the rehab Physical Exam Vital Signs: Temp Pulse Resp BP Pulse Ox 97.5 F 72 17 141/62 H 100 09/15/17 08:11 09/15/17 08:11 09/15/17 08:11 09/15/17 08:11 09/15/17 08:11 Intake & Output 09/14/17 09/15/17 09/16/17 06:59 06:59 06:59 Intake Total 2708 1238 Output Total 1300 800 Balance 1408 438 Weight 91.4 kg 92.5 kg General appearance: PRESENT: mild distress Head exam: PRESENT: atraumatic Eye exam: PRESENT: conjunctiva pink Neck exam: ABSENT: carotid bruit, JVD Respiratory exam: PRESENT: chest wall tenderness, clear to auscultation shawn Cardiovascular exam: PRESENT: RRR, +S1, +S2 Pulses: PRESENT: normal carotid pulses Vascular exam: PRESENT: normal capillary refill GI/Abdominal exam: PRESENT: normal bowel sounds, soft Extremities exam: PRESENT: tenderness Musculoskeletal exam: PRESENT: tenderness Neurological exam: PRESENT: alert, awake Results Laboratory Results: 09/14/17 03:57 09/14/17 03:57 Impressions: Chest X-Ray 09/08/17 00:00 IMPRESSION: NO ACUTE RADIOGRAPHIC FINDING IN THE CHEST. Fluoroscopy 09/09/17 00:00 IMPRESSION: Intra procedural imaging and fluoro Hip X-Ray 09/09/17 00:00 IMPRESSION: Intra procedural imaging and fluoro Plan Discharge Plan: Physical therapy twice a day. Continue current medications. Follow the instruction as given by
[2017-09-15] MEDS: METOPROLOL SUCCINATE 25 MG TAB.SR.24H PO SCH (10:50)
[2017-09-15] MEDS: AMLODIPINE BESYLATE 2.5 MG TABLET PO SCH (10:52)
[2017-09-15] MEDS: LOSARTAN POTASSIUM 50 MG TABLET PO SCH (10:52)
[2017-09-15] MEDS: DOCUSATE SODIUM 100 MG CAPSULE PO SCH (10:52)
[2017-09-15 12:15] VITALS: BP 130/63
[2017-09-15] MEDS ORDERED: MAGNESIUM HYDROXIDE SUSP 30 ML UDCUP PO PRN (12:30)
[2017-09-15] MEDS ORDERED: ONDANSETRON 4 MG TAB.RAPDIS PO PRN (12:30)
== END 2017-09-15 13:30 | DRG 481 ==
LOC: ER 15:20 → EH 18:18 → 4S 20:23 → 4N 09-11 19:15
PROVIDERS: ADMIT Internal Medicine; ATTEND Internal Medicine
PROC: 0QS736Z Reposition Left Upper Femur with Intramedullary Internal Fixation Device, Percutaneous Approach (ICD-10-PCS; principal; 2017-09-09 13:00)
PROC: 30233N1 Transfusion of Nonautologous Red Blood Cells into Peripheral Vein, Percutaneous Approach (ICD-10-PCS; 2017-09-13)
PROC: 3E0234Z Introduction of Serum, Toxoid and Vaccine into Muscle, Percutaneous Approach (ICD-10-PCS; 2017-09-15)
DX: S72.142A Displaced intertrochanteric fracture of left femur, initial encounter for closed fracture (principal); D62 Acute posthemorrhagic anemia; S72.002A Fracture of unspecified part of neck of left femur, initial encounter for closed fracture; E11.9 Type 2 diabetes mellitus without complications; I10 Essential (primary) hypertension; D64.9 Anemia, unspecified; K59.03 Drug induced constipation; T50.995A Adverse effect of other drugs, medicaments and biological substances, initial encounter; K21.9 Gastro-esophageal reflux disease without esophagitis; M19.90 Unspecified osteoarthritis, unspecified site; D50.0 Iron deficiency anemia secondary to blood loss (chronic); W11.XXXA Fall on and from ladder, initial encounter; Z88.8 Allergy status to other drugs, medicaments and biological substances; Z23 Encounter for immunization; Z79.899 Other long term (current) drug therapy; Z90.49 Acquired absence of other specified parts of digestive tract; Z90.710 Acquired absence of both cervix and uterus; Z83.3 Family history of diabetes mellitus; Z82.49 Family history of ischemic heart disease and other diseases of the circulatory system; Z88.6 Allergy status to analgesic agent
CPT/HCPCS: 01230; 36415; 36430; 51702; 71010; 80048; 80053; 81001; 82962; 85025; 85027; 85610; 85730; 86850; 86900; 86901; 86920; 90686; 93005; 93010; 94799; 99285; G8978-GP; G8979-GP; G8987-GO; G8988-GO; J0131; J0330; J0690; J1100; J1170; J1650; J1940; J2250; J2270; J2370; J2405; J2704; J3010; J3490; J7030; P9016; S0028; S0119

== ENCOUNTER → 2018-07-27 | Outpatient (CLI) | payer MEDICARE, BC ==
--- NOTE | 2018-07-27 15:09 | RADIOLOGY REPORT (SQ) ---
EXAM DESCRIPTION: CAROTID DOPPLER COMPLETED DATE/TIME: 07/27/2018 2:56 pm REASON FOR STUDY: CAROTID BRUIT R09.89 OTH SYMPTOMS AND SIGNS INVOLVING THE CIRC AND RESP SY COMPARISON: CT soft tissue neck 04/27/2017 TECHNIQUE: Grayscale ultrasound, Doppler velocity and spectra, and color Doppler images acquired of the extra-cranial carotid and vertebral arteries. Images stored on PACS. LIMITATIONS: None. FINDINGS: RIGHT CAROTID CCA Velocities: Within normal limits. Right common carotid artery peak systolic velocity 0.69 m/sec ICA Velocities Peak systolic 0.78 m/s. End diastolic 0.15 m/s. Proximal ICA/CCA peak systolic ratio 1.0. Spectra normal. No significant plaque. LEFT CAROTID CCA Velocities: Within normal limits. Left common carotid artery peak systolic velocity 1.1 m/sec ICA Velocities Peak systolic 0.91 m/s. End diastolic 0.28 m/s. Proximal ICA/CCA peak systolic ratio 1.7. Spectra normal. No significant plaque. VERTEBRAL ARTERIES: Antegrade flow. Normal waveforms. SUBCLAVIAN ARTERIES: Not evaluated OTHER: No other significant finding. IMPRESSION: NO HEMODYNAMICALLY SIGNIFICANT STENOSIS. COMMENT: Quality ID #[id number]: Velocity criteria are extrapolated from the diameter data as defined by t abbe Society of Radiologists in Ultrasound Consensus Conference. Radiology 2003: 229; 340-346. TECHNICAL DOCUMENTATION: JOB ID: [id number]- All Rights Reserved Reading location - IP/workstation name: [email or web address]
== END ==
LOC: RAD 12:54
PROVIDERS: ATTEND Internal Medicine
DX: R09.89 Other specified symptoms and signs involving the circulatory and respiratory systems (principal)
CPT/HCPCS: 93880

== ENCOUNTER → 2018-10-10 | Outpatient (CLI) | payer MEDICARE, BC ==
[2018-10-10 11:34] LABS: ABSOLUTE EOSINOPHILS # (AUTO) 0.1 10^3/uL (0.0-0.6); ABSOLUTE LYMPHOCYTES (AUTO) 1.2 10^3/uL (0.5-4.7); ABSOLUTE MONOCYTES (AUTO) 0.4 10^3/uL (0.1-1.4); ABSOLUTE NEUT (AUTO) 3.8 10^3/uL (1.7-8.2); BASOPHILS % (AUTO) 0.4 % (0-2); EOSINOPHILS % (AUTO) 1.5 % (0-6); HEMATOCRIT 41.6 % (36.0-47.0); HEMOGLOBIN 14.1 g/dL (12.0-15.5); LYMPHOCYTES % (AUTO) 22.5 % (13-45); MEAN CORPUSCULAR HEMOGLOBIN 29.6 pg (27.0-33.4); MEAN CORPUSCULAR HGB CONC 33.9 g/dL (32.0-36.0); MEAN CORPUSCULAR VOLUME 88 fl (80-97); PLATELET COUNT 240 10^3/uL (150-450); RED BLOOD COUNT 4.76 10^6/uL (3.72-5.28); RED CELL DISTRIBUTION WIDTH 13.1 % (11.5-14.0); SEGMENTED NEUTROPHILS % (AUTO) 68.6 % (42-78); TOTAL CELLS COUNTED % (AUTO) 100 %; WHITE BLOOD COUNT 5.5 10^3/uL (4.0-10.5)
[2018-10-10 11:54] LABS: ALANINE AMINOTRANSFERASE 18 U/L (9-52); ALBUMIN 4.8 g/dL (3.5-5.0); ALKALINE PHOSPHATASE 160 U/L (38-126); ANION GAP 7 (5-19); ASPARTATE AMINO TRANSFERASE 24 U/L (14-36); BILIRUBIN,DIRECT 0.2 mg/dL (0.0-0.4); BILIRUBIN,TOTAL 0.5 mg/dL (0.2-1.3); BLOOD UREA NITROGEN 18 mg/dL (7-20); CALCIUM 9.9 mg/dL (8.4-10.2); CARBON DIOXIDE 30 mmol/L (22-30); CHLORIDE 106 mmol/L (98-107); CHOLESTEROL 217.67 mg/dL (0-200); GLUCOSE 135 mg/dL (75-110); POTASSIUM 4.4 mmol/L (3.6-5.0); SODIUM 142.6 mmol/L (137-145); TOTAL PROTEIN 7.7 g/dL (6.3-8.2); TRIGLYCERIDES 120 mg/dL (<150)
[2018-10-10 12:05] LABS: DIRECT LDL 122 mg/dL (<100)
== END ==
LOC: OD 10:40
PROVIDERS: ATTEND Internal Medicine
DX: I10 Essential (primary) hypertension (principal); E78.5 Hyperlipidemia, unspecified; K21.9 Gastro-esophageal reflux disease without esophagitis; E11.9 Type 2 diabetes mellitus without complications
CPT/HCPCS: 36415; 80053; 80061; 82272; 82306; 83036; 84443; 85025

== ENCOUNTER → 2018-12-11 | Outpatient (CLI) | payer MEDICARE, BC ==
[2018-12-11 13:16] LABS: ALANINE AMINOTRANSFERASE 13 U/L (9-52); ALBUMIN 4.3 g/dL (3.5-5.0); ALKALINE PHOSPHATASE 156 U/L (38-126); ASPARTATE AMINO TRANSFERASE 26 U/L (14-36); BILIRUBIN,DIRECT 0.2 mg/dL (0.0-0.4); BILIRUBIN,TOTAL 0.6 mg/dL (0.2-1.3); CHOLESTEROL 211.74 mg/dL (0-200); TOTAL PROTEIN 7.2 g/dL (6.3-8.2); TRIGLYCERIDES 126 mg/dL (<150)
[2018-12-11 13:27] LABS: DIRECT LDL 128 mg/dL (<100)
== END ==
LOC: OD 11:19
PROVIDERS: ATTEND Internal Medicine
DX: E78.5 Hyperlipidemia, unspecified (principal); E11.8 Type 2 diabetes mellitus with unspecified complications; R94.5 Abnormal results of liver function studies
CPT/HCPCS: 36415; 80061; 80076; 83036

== ENCOUNTER → 2019-01-11 | Outpatient (CLI) | payer MEDICARE, BC ==
[2019-01-11 13:03] LABS: APPEARANCE,URINE CLEAR; BILIRUBIN,URINE NEGATIVE (NEGATIVE); COLOR,URINE YELLOW; GLUCOSE, URINE NEGATIVE (NEGATIVE); KETONES,URINE NEGATIVE (NEGATIVE); LEUKOCYTE ESTERASE,URINE NEGATIVE (NEGATIVE); NITRITE,URINE NEGATIVE (NEGATIVE); PROTEIN,URINE NEGATIVE (NEGATIVE); URINE SPECIFIC GRAVITY 1.014; UROBILINOGEN,URINE NEGATIVE mg/dL (<2.0)
[2019-01-11 13:20] LABS: ANION GAP 10 (5-19); BLOOD UREA NITROGEN 18 mg/dL (7-20); CALCIUM 9.4 mg/dL (8.4-10.2); CARBON DIOXIDE 24 mmol/L (22-30); CHLORIDE 108 mmol/L (98-107); GLUCOSE 177 mg/dL (75-110); POTASSIUM 4.1 mmol/L (3.6-5.0); SODIUM 141.5 mmol/L (137-145)
== END ==
LOC: OD 12:08
PROVIDERS: ATTEND Internal Medicine
DX: N19 Unspecified kidney failure (principal); E05.90 Thyrotoxicosis, unspecified without thyrotoxic crisis or storm; N39.0 Urinary tract infection, site not specified
CPT/HCPCS: 36415; 80048; 81001; 84443

== ENCOUNTER → 2019-01-12 | Outpatient (CLI) | payer MEDICARE, BC ==
--- NOTE | 2019-01-12 13:10 | XCELERA REPORT ---
[address] [place] [facility] [address] Lower Extremity Venous Evaluation Procedure: Color flow and duplex imaging of the veins of the left lower extremity as well as the right Common Femoral vein. Right Sided Venous Evaluation The right common femoral vein is fully compressible. Spontaneous and phasic flow is present in the right common femoral vein. Left Sided Venous Evaluation Normal vessel filling wall to wall, compression and augmentation as well as Colour flow down to the infrageniculate veins. Interpretation Summary No duplex evidence of DVT or obstruction in the left lower extremity nor in the right Common Femoral vein. Name: SARAH MURILLO Age: 68 yrs Gender: Female : 1950 Patient Status: Outpatient Patient Location: Study Date: 01/12/2019 11:01 AM Reason For Study: LLE SWELLING Ordering Physician: BRIANNE REINOSO Performed By: Honorio Greenwood : BRIANNE REINOSO > Tan Chester
== END ==
LOC: SP 10:25
PROVIDERS: ATTEND Podiatrist Foot & Ankle Surgery
DX: I82.492 Acute embolism and thrombosis of other specified deep vein of left lower extremity (principal)
CPT/HCPCS: 93971

== ENCOUNTER → 2019-01-17 | Outpatient (CLI) | payer MEDICARE, BC ==
--- NOTE | 2019-01-17 12:28 | RADIOLOGY REPORT (SQ) ---
EXAM DESCRIPTION: CT BONE LENGTH COMPLETED DATE/TIME: 01/17/2019 10:28 am REASON FOR STUDY: CONGENITAL SHORTENING OF UNSPECIFIED LOWER LIMB Q72.819 CONGENITAL SHORTENING OF UNSPECIFIED LOWER LIMB COMPARISON: None. TECHNIQUE: CT scanogram of the bilateral lower extremities is performed including pelvis to ankles. Measurements of femur, tibia, and entire lower extremities performed by the radiologist and saved to PACS. All CT scanners at this facility use dose modulation, iterative reconstruction, and/or weight based d osing when appropriate to reduce radiation dose to as low as reasonably achievable (ALARA). [facility]: Dose Right [facility]: CareDose [facility]: Dose Right [facility]: Teradose 4D [facility]: Taaz RADIATION DOSE: mGy. LIMITATIONS: None. FINDINGS: RIGHT: FEMUR: 44.8 cm. TIBIA: 35.1 cm. TOTAL RIGHT LOWER EXTREMITY LENGTH: 79.0 cm. LEFT: FEMUR: 44.2 cm. TIBIA: 34.5 cm. TOTAL LEFT LOWER EXTREMITY LENGTH: 78.3 cm. IMPRESSION: LEG LENGTH MEASUREMENTS DETAILED ABOVE. TECHNICAL DOCUMENTATION: JOB ID: [id number] Quality ID # [id number]: Final reports with documentation of one or more dose reduction techniques (e.g., Au tomated exposure control, adjustment of the mA and/or kV according to patient size, use of iterative reconstruction technique) 2010 [email or web address]- All Rights Reserved Reading location - IP/workstation name: [email or web address]
== END ==
LOC: RAD 10:16
PROVIDERS: ATTEND Podiatrist Foot & Ankle Surgery
DX: Q72.819 Congenital shortening of unspecified lower limb (principal)
CPT/HCPCS: 77073

== ENCOUNTER → 2019-04-06 | Outpatient (CLI) | payer MEDICARE, BC ==
[2019-04-06 10:07] LABS: ABSOLUTE EOSINOPHILS # (AUTO) 0.1 10^3/uL (0.0-0.6); ABSOLUTE LYMPHOCYTES (AUTO) 1.5 10^3/uL (0.5-4.7); ABSOLUTE MONOCYTES (AUTO) 0.5 10^3/uL (0.1-1.4); ABSOLUTE NEUT (AUTO) 3.7 10^3/uL (1.7-8.2); BASOPHILS % (AUTO) 0.5 % (0-2); EOSINOPHILS % (AUTO) 2.4 % (0-6); HEMATOCRIT 39.3 % (36.0-47.0); HEMOGLOBIN 13.2 g/dL (12.0-15.5); LYMPHOCYTES % (AUTO) 25.8 % (13-45); MEAN CORPUSCULAR HEMOGLOBIN 29.8 pg (27.0-33.4); MEAN CORPUSCULAR HGB CONC 33.7 g/dL (32.0-36.0); MEAN CORPUSCULAR VOLUME 89 fl (80-97); MONOCYTES % (AUTO) 8.9 % (3-13); PLATELET COUNT 253 10^3/uL (150-450); RED BLOOD COUNT 4.44 10^6/uL (3.72-5.28); RED CELL DISTRIBUTION WIDTH 13.2 % (11.5-14.0); SEGMENTED NEUTROPHILS % (AUTO) 62.4 % (42-78); TOTAL CELLS COUNTED % (AUTO) 100 %
[2019-04-06 10:35] LABS: ALANINE AMINOTRANSFERASE 29 U/L (9-52); ALBUMIN 4.4 g/dL (3.5-5.0); ALKALINE PHOSPHATASE 123 U/L (38-126); ANION GAP 9 (5-19); ASPARTATE AMINO TRANSFERASE 37 U/L (14-36); BILIRUBIN,DIRECT 0.1 mg/dL (0.0-0.4); BILIRUBIN,TOTAL 0.5 mg/dL (0.2-1.3); BLOOD UREA NITROGEN 23 mg/dL (7-20); CALCIUM 9.7 mg/dL (8.4-10.2); CARBON DIOXIDE 29 mmol/L (22-30); CHLORIDE 103 mmol/L (98-107); CHOLESTEROL 180.92 mg/dL (0-200); GLUCOSE 161 mg/dL (75-110); POTASSIUM 4.7 mmol/L (3.6-5.0); SODIUM 140.5 mmol/L (137-145); TOTAL PROTEIN 7.2 g/dL (6.3-8.2); TRIGLYCERIDES 160 mg/dL (<150)
[2019-04-06 10:52] LABS: DIRECT LDL 100 mg/dL (<100)
== END ==
LOC: OD 09:10
PROVIDERS: ATTEND Internal Medicine
DX: E78.5 Hyperlipidemia, unspecified (principal); E11.9 Type 2 diabetes mellitus without complications; R10.9 Unspecified abdominal pain; D64.9 Anemia, unspecified; E55.9 Vitamin D deficiency, unspecified
CPT/HCPCS: 36415; 80053; 80061; 82306; 83036; 84443; 85025

== ENCOUNTER → 2019-07-12 | Outpatient (CLI) | payer MEDICARE, BC ==
[2019-07-12 12:26] LABS: ANION GAP 11 (5-19); BLOOD UREA NITROGEN 19 mg/dL (7-20); CARBON DIOXIDE 29 mmol/L (22-30); CHLORIDE 103 mmol/L (98-107); GLUCOSE 150 mg/dL (75-110); POTASSIUM 4.4 mmol/L (3.6-5.0)
== END ==
LOC: OD 10:05
PROVIDERS: ATTEND Family Medicine
DX: E11.9 Type 2 diabetes mellitus without complications (principal)
CPT/HCPCS: 36415; 80048; 83036

== ENCOUNTER → 2019-10-04 | Outpatient (CLI) | payer MEDICARE, BC ==
[2019-10-04 12:15] LABS: ANION GAP 10 (5-19); BLOOD UREA NITROGEN 20 mg/dL (7-20); CARBON DIOXIDE 30 mmol/L (22-30); CHLORIDE 99 mmol/L (98-107); GLUCOSE 141 mg/dL (75-110)
== END ==
LOC: OD 10:25
PROVIDERS: ATTEND Family Medicine
DX: E11.9 Type 2 diabetes mellitus without complications (principal)
CPT/HCPCS: 36415; 80048; 83036

== ENCOUNTER → 2019-12-03 | Outpatient (CLI) | payer MEDICARE, BC ==
[2019-12-03 13:04] LABS: ALBUMIN 4.5 g/dL (3.5-5.0); ALKALINE PHOSPHATASE 102 U/L (38-126); ANION GAP 9 (5-19); ASPARTATE AMINO TRANSFERASE 25 U/L (14-36); BILIRUBIN,TOTAL 0.5 mg/dL (0.2-1.3); BLOOD UREA NITROGEN 20 mg/dL (7-20); CALCIUM 9.7 mg/dL (8.4-10.2); CARBON DIOXIDE 30 mmol/L (22-30); CHLORIDE 102 mmol/L (98-107); CHOLESTEROL 152.38 mg/dL (0-200); GLUCOSE 121 mg/dL (75-110); TOTAL PROTEIN 7.5 g/dL (6.3-8.2); TRIGLYCERIDES 155 mg/dL (<150)
[2019-12-03 13:15] LABS: DIRECT LDL 89 mg/dL (<100)
[2019-12-04 12:36] LABS: CREATININE URINE 207.5 mg/dL (Not Estab.); MICROALBUMIN URINE 17.8 ug/mL (Not Estab.)
== END ==
LOC: OD 10:56
PROVIDERS: ATTEND Family Medicine
DX: E78.5 Hyperlipidemia, unspecified (principal); E11.9 Type 2 diabetes mellitus without complications
CPT/HCPCS: 36415; 80053; 80061; 82043; 82570; 83036

== ENCOUNTER → 2020-02-26 | Outpatient (CLI) | payer MEDICARE, BC ==
[2020-02-26 10:33] LABS: ALBUMIN 4.4 g/dL (3.5-5.0); ALKALINE PHOSPHATASE 110 U/L (38-126); ANION GAP 8 (5-19); ASPARTATE AMINO TRANSFERASE 24 U/L (14-36); BILIRUBIN,TOTAL 0.4 mg/dL (0.2-1.3); BLOOD UREA NITROGEN 29 mg/dL (7-20); CALCIUM 9.7 mg/dL (8.4-10.2); CARBON DIOXIDE 29 mmol/L (22-30); CHLORIDE 103 mmol/L (98-107); CHOLESTEROL 142.45 mg/dL (0-200); GLUCOSE 128 mg/dL (75-110); POTASSIUM 4.1 mmol/L (3.6-5.0); TOTAL PROTEIN 7.2 g/dL (6.3-8.2); TRIGLYCERIDES 158 mg/dL (<150)
[2020-02-26 10:44] LABS: DIRECT LDL 80 mg/dL (<100)
[2020-02-26 10:48] LABS: VLDL CHOLESTEROL 31.6 mg/dL (10-31)
== END ==
LOC: OD 09:32
PROVIDERS: ATTEND Family Medicine
DX: E11.9 Type 2 diabetes mellitus without complications (principal); E78.5 Hyperlipidemia, unspecified
CPT/HCPCS: 36415; 80053; 80061; 83036

== ENCOUNTER → 2020-02-28 | Outpatient (CLI) | payer MEDICARE, BC ==
[2020-02-28 12:03] LABS: ABSOLUTE EOSINOPHILS # (AUTO) 0.2 10^3/uL (0.0-0.6); ABSOLUTE LYMPHOCYTES (AUTO) 1.6 10^3/uL (0.5-4.7); ABSOLUTE MONOCYTES (AUTO) 0.5 10^3/uL (0.1-1.4); BASOPHILS % (AUTO) 0.6 % (0-2); EOSINOPHILS % (AUTO) 2.9 % (0-6); HEMATOCRIT 36.5 % (36.0-47.0); HEMOGLOBIN 12.3 g/dL (12.0-15.5); LYMPHOCYTES % (AUTO) 30.5 % (13-45); MEAN CORPUSCULAR HEMOGLOBIN 29.8 pg (27.0-33.4); MEAN CORPUSCULAR HGB CONC 33.7 g/dL (32.0-36.0); MEAN CORPUSCULAR VOLUME 89 fl (80-97); MONOCYTES % (AUTO) 9.2 % (3-13); PLATELET COUNT 246 10^3/uL (150-450); RED BLOOD COUNT 4.13 10^6/uL (3.72-5.28); RED CELL DISTRIBUTION WIDTH 13.2 % (11.5-14.0); SEGMENTED NEUTROPHILS % (AUTO) 56.8 % (42-78); TOTAL CELLS COUNTED % (AUTO) 100 %; WHITE BLOOD COUNT 5.3 10^3/uL (4.0-10.5)
--- NOTE | 2020-02-28 13:42 | RADIOLOGY REPORT (SQ) ---
EXAM DESCRIPTION: FOREARM RIGHT IMAGES COMPLETED DATE/TIME: 02/28/2020 12:57 pm REASON FOR STUDY: PAIN OF RT UPPER EXTREMITY; PAIN OF RT LOWER LEG R53.83 OTHER FATIGUE M79.601 PA IN IN RIGHT ARM COMPARISON: None. NUMBER OF VIEWS: Two views. TECHNIQUE: Two radiographic images acquired of the right forearm, including elbow and wrist in at le ast one projection. LIMITATIONS: None. FINDINGS: MINERALIZATION: Normal. BONES: No acute fracture or dislocation. No worrisome bone lesions. No significant osteophytes. SOFT TISSUES: No obvious swelling or foreign body. OTHER: No other significant finding. IMPRESSION: NEGATIVE STUDY OF THE RIGHT FOREARM. NO EXPLANATION FOR PAIN. TECHNICAL DOCUMENTATION: JOB ID: [id number] [employer]- All Rights Reserved Reading location - IP/workstation name: [email or web address]
--- NOTE | 2020-02-28 14:08 | RADIOLOGY REPORT (SQ) ---
EXAM DESCRIPTION: HUMERUS RIGHT IMAGES COMPLETED DATE/TIME: 02/28/2020 12:57 pm REASON FOR STUDY: PAIN OF RT UPPER EXTREMITY; PAIN OF RT LOWER LEG R53.83 OTHER FATIGUE M79.601 PA IN IN RIGHT ARM COMPARISON: None. NUMBER OF VIEWS: Two views. TECHNIQUE: Two radiographic images were acquired of the right humerus to include elbow and shoulder in at least one projection. LIMITATIONS: None. FINDINGS: MINERALIZATION: Normal. BONES: No acute fracture or dislocation. No worrisome bone lesions. No significant osteophytes. SOFT TISSUES: No obvious swelling or foreign body. OTHER: No other significant finding. IMPRESSION: NEGATIVE STUDY OF THE RIGHT HUMERUS. NO EXPLANATION FOR PAIN. TECHNICAL DOCUMENTATION: JOB ID: [id number] 2010 [employer]- All Rights Reserved Reading location - IP/workstation name: [email or web address]
--- NOTE | 2020-02-28 14:23 | RADIOLOGY REPORT (SQ) ---
EXAM DESCRIPTION: TIBIA FIBULA RIGHT IMAGES COMPLETED DATE/TIME: 02/28/2020 12:57 pm REASON FOR STUDY: PAIN OF RT UPPER EXTREMITY; PAIN OF RT LOWER LEG R53.83 OTHER FATIGUE M79.601 PA IN IN RIGHT ARM COMPARISON: None. NUMBER OF VIEWS: Two views. TECHNIQUE: Two radiographic images acquired of the right tibia and fibula to include the knee and an kle in at least one projection. LIMITATIONS: None. FINDINGS: MINERALIZATION: Normal. BONES: No acute fracture or dislocation. No worrisome bone lesions. No significant osteophytes. SOFT TISSUES: No obvious swelling or foreign body. OTHER: No other significant finding. IMPRESSION: NEGATIVE STUDY OF THE RIGHT TIBIA AND FIBULA. NO EXPLANATION FOR PAIN. TECHNICAL DOCUMENTATION: JOB ID: [id number] 2010 [employer]- All Rights Reserved Reading location - IP/workstation name: [email or web address]
== END ==
LOC: OD 10:41
PROVIDERS: ATTEND Family Medicine
DX: M79.601 Pain in right arm (principal); R53.83 Other fatigue
CPT/HCPCS: 36415; 84443; 85025

== ENCOUNTER → 2020-03-17 | Outpatient (CLI) | payer MEDICARE, BC | LOC: OD 12:10 | PROVIDERS: ATTEND Allergy & Immunology | DX: Z09 Encounter for follow-up examination after completed treatment for conditions other than malignant neoplasm (principal); Z91.040 Latex allergy status | CPT/HCPCS: 36415 ==